=== PATIENT | female | born 1990 | race Two or more races ===

== ENCOUNTER 2019-04-23 14:58 | Emergency (ER) | payer OTHER ==
[~2019-04-23] VITALS: Ht 157.5 cm; Wt 68.0 kg
[~2019-04-23 14:58] MED LIST: CLO3P TD; CYCL100C8 PO; ERGO1CAP23 PO; FAMO-12 PO; FERR-7 PO; ISRA2.5C PO; LEV250T PO; OMEP20CA74 PO; PRE5T PO; PROPRANOLOL PO; SODB650T PO; [UNRECOGNIZED DRUG - CODE] PO
[2019-04-23] MEDS ORDERED: SODIUM CHLORIDE 0.9% 1,000 ML IVB ONE (15:24)
[2019-04-23] MEDS ORDERED: FAMOTIDINE (10MG/ML) 2ML VL IV ONE (15:30)
[2019-04-23] MEDS ORDERED: MORPHINE SULFATE 4 MG/ML SYR/VIAL IV ONE (15:30)
[2019-04-23] MEDS ORDERED: PROCHLORPERAZINE EDISYLATE 5 MG/ML 2ML VIAL IV ONE (15:30)
[2019-04-23 16:02] LABS: Albumin 4.1 g/dL (3.4-5.0); Calcium 9.7 mg/dL (8.5-10.1); Potassium 4.9 mmol/L (3.5-5.1)
[2019-04-23 16:10] LABS: BUN/Creatinine Ratio 15.4; Bilirubin, Total 0.7 mg/dL (0.2-1.0); Total Protein 7.9 g/dL (6.4-8.2)
[2019-04-23 16:24] LABS: Basophils # (auto) 0.1 uL; Basophils % (auto) 0.7 % (0.0-2.0); Eosinophils # (auto) 0 uL; Eosinophils % (auto) 0.1 % (0.0-7.0); Hematocrit 32.9 % (36.0-46.0); Hemoglobin 11.2 g/dL (12.2-16.2); Lymphocytes % (auto) 12.9 % (10.0-50.0); Mean Corpuscular Hemoglobin 33.8 pg (28.0-32.0); Mean Corpuscular Volume 99.3 fL (80.0-100.0); Monocytes # (auto) 0.3 uL; Monocytes % (auto) 3.4 % (0.0-12.0); Neutrophils # (auto) 6.3 uL; Neutrophils % (auto) 82.9 % (37.0-80.0); Platelet Count (auto) 287 10^3/uL (140-450); Red Blood Cells 3.32 10^6/uL (4.0-5.20); Red Cell Distribution Width 13.7 % (11.8-14.3); White Blood Cell 7.5 10^3/uL (4.4-10.8)
[2019-04-23 16:46] LABS: Urine Bacteria FEW /hpf (None Seen); Urine Blood TRACE /uL (Negative); Urine Specific Gravity 1.013 (1.001-1.035); Urine WBC 18 /hpf (0 - 5)
[2019-04-23 17:01] VITALS: BP 134/80
== END 2019-04-23 18:03 | disposition home or self-care (01) ==
LOC: ER 15:00
DX: N39.0 Urinary tract infection, site not specified (principal); R11.2 Nausea with vomiting, unspecified; K21.9 Gastro-esophageal reflux disease without esophagitis; E78.5 Hyperlipidemia, unspecified; I12.9 Hypertensive chronic kidney disease with stage 1 through stage 4 chronic kidney disease, or unspecified chronic kidney disease; N18.9 Chronic kidney disease, unspecified; Z79.899 Other long term (current) drug therapy
CPT/HCPCS: 36415; 76705; 80053; 81001; 81025; 82150; 83690; 85025; 94761; 96361; 96374; 96375; 99283; J0780; J2270; J3490; J7030

== ENCOUNTER 2019-05-15 08:45 | Emergency (ER) | payer OTHER ==
[~2019-05-15] VITALS: Ht 162.6 cm; Wt 70.3 kg
[2019-05-15] MEDS ORDERED: SODIUM CHLORIDE 0.9% 1,000 ML IV ONE (09:05)
[2019-05-15] MEDS ORDERED: SODIUM CHLORIDE 0.9% 500 ML IVB ONE (09:05)
[2019-05-15] MEDS ORDERED: PROMETHAZINE HCL 25 MG/ML 1ML IV PRN (09:15)
[2019-05-15] MEDS ORDERED: CYCL1CAP PO ×2 (09:55→10:11)
[2019-05-15 10:40] LABS: Magnesium 2.3 mg/dL (1.6-2.6)
[2019-05-15 10:45] LABS: Albumin 4.5 g/dL (3.4-5.0); BUN/Creatinine Ratio 16.8; Calcium 9.7 mg/dL (8.5-10.1); Potassium 4.8 mmol/L (3.5-5.1)
[2019-05-15 10:47] LABS: Bilirubin, Total 0.9 mg/dL (0.2-1.0); Total Protein 8.1 g/dL (6.4-8.2)
[2019-05-15 11:31] LABS: Basophils # (auto) 0 uL; Eosinophils # (auto) 0 uL; Eosinophils % (auto) 0.1 % (0.0-7.0); Hemoglobin 10.6 g/dL (12.2-16.2); Monocytes # (auto) 0.3 uL; Red Cell Distribution Width 14.4 % (11.8-14.3)
[2019-05-15 11:32] LABS: Basophils % (auto) 0.6 % (0.0-2.0); Hematocrit 31.5 % (36.0-46.0); Lymphocytes # (auto) 0.8 uL; Lymphocytes % (auto) 19.7 % (10.0-50.0); Mean Corpuscular Hgb Conc. 33.7 g/dL (32.0-36.0); Mean Corpuscular Volume 100.9 fL (80.0-100.0); Monocytes % (auto) 6.5 % (0.0-12.0); Neutrophils # (auto) 2.9 uL; Neutrophils % (auto) 73.1 % (37.0-80.0); Platelet Count (auto) 272 10^3/uL (140-450); Red Blood Cells 3.12 10^6/uL (4.0-5.20)
[2019-05-15 13:19] LABS: Urine Bacteria FEW /hpf (None Seen); Urine Blood TRACE /uL (Negative); Urine Specific Gravity 1.011 (1.001-1.035); Urine WBC 14 /hpf (0 - 5)
[2019-05-15] MEDS ORDERED: cefTRIAXone 1GM/50ML D5W 50 ML IV ONE (16:30)
[2019-05-15 17:49] VITALS: BP 166/111
[2019-05-15] MEDS ORDERED: SODIUM CHLORIDE 0.9% 2,000 ML IV ONE (18:00)
[2019-05-15] MEDS ORDERED: cloNIDine HCL 0.1 MG TAB PO ONE (18:00)
[2019-05-15] MEDS ORDERED: cloNIDine HCL 0.1 MG TAB PO PRN (18:00)
[2019-05-15] MEDS ORDERED: METO-281 PO (18:07)
[2019-05-15] MEDS ORDERED: hydrALAZINE HCL 20 MG/ML VL IV PRN (18:15)
[2019-05-15] MEDS ORDERED: METOCLOPRAMIDE HCL 5MG/ml INJ 2ml VIAL IV PRN (18:15)
[2019-05-15 18:33] LABS: BUN/Creatinine Ratio 15.8; Calcium 8.6 mg/dL (8.5-10.1); Potassium 4.6 mmol/L (3.5-5.1)
[2019-05-15] MEDS ORDERED: PATIENTS OWN MEDICATION PO SCH (19:30)
[2019-05-15] MEDS ORDERED: CYCLOSPORINE 100 MG PO SCH (19:30)
[2019-05-15] MEDS ORDERED: SODIUM BICARBONATE 650 MG TAB PO SCH (22:00)
[2019-05-15] MEDS ORDERED: PROPRANOLOL HCL 20 MG TAB PO SCH (22:00)
[2019-05-15] MEDS ORDERED: ISRADIPINE 2.5 MG PO SCH (22:00)
[2019-05-16] MEDS ORDERED: CYCLOSPORINE MODIFIED PO SCH (07:00)
[2019-05-16] MEDS ORDERED: predniSONE 5 MG TAB PO SCH (10:00)
[2019-05-16] MEDS ORDERED: cloNIDine 0.3 mg/24hr 7DAY PATCH TD SCH (10:00)
[2019-05-16] MEDS ORDERED: PANTOPRAZOLE 40 MG TAB PO SCH (10:00)
[2019-05-16] MEDS ORDERED: azaTHIOprine 50 MG TAB PO SCH (10:00)
[2019-05-16] MEDS ORDERED: FAMOTIDINE 20 MG TAB PO SCH (10:00)
[2019-05-16] MEDS ORDERED: FERROUS SULFATE 325 MG TAB PO SCH (10:00)
[2019-05-17] MEDS ORDERED: ERGOCALCIFEROL 50,000 UNIT(1.25MG) CAP PO SCH (10:00)
== END 2019-05-15 20:40 | disposition home or self-care (01) ==
LOC: ER 08:48
DX: E86.0 Dehydration (principal); I12.9 Hypertensive chronic kidney disease with stage 1 through stage 4 chronic kidney disease, or unspecified chronic kidney disease; N18.4 Chronic kidney disease, stage 4 (severe); K21.9 Gastro-esophageal reflux disease without esophagitis; E78.5 Hyperlipidemia, unspecified; N39.0 Urinary tract infection, site not specified; Z94.0 Kidney transplant status; Z79.899 Other long term (current) drug therapy
CPT/HCPCS: 36415; 71046; 74176; 76775; 80048; 80053; 81001; 81025; 83690; 83735; 84443; 84702; 85025; 93005; 94761; 96361; 96365; 96375; 99284; J0696; J2550; J7030; J7040

== ENCOUNTER 2020-10-12 12:41 | Emergency (ER) | payer OTHER ==
[~2020-10-12] VITALS: Ht 160 cm; Wt 83.9 kg
[~2020-10-12 12:41] MED LIST changes: -CYCL100C8 PO; +CYCL1CAP PO; +METO-281 PO
[2020-10-12 14:54] VITALS: BP 138/92
[2020-10-12] MEDS ORDERED: diphenhdrAMINE HCL 25 MG CAP PO ONE (15:45)
== END 2020-10-12 15:39 | disposition home or self-care (01) ==
LOC: ER 12:41
DX: L23.89 Allergic contact dermatitis due to other agents (principal); T37.8X5A Adverse effect of other specified systemic anti-infectives and antiparasitics, initial encounter; Y92.9 Unspecified place or not applicable

== ENCOUNTER 2020-11-11 20:38 | Emergency (ER) | payer OTHER ==
[~2020-11-11] VITALS: Ht 162.6 cm; Wt 63.5 kg
[2020-11-11 21:20] LABS: Basophils # (auto) 0 10 ^3/uL (0-0.2); Basophils % (auto) 0.3 % (0.0-2.0); Eosinophils # (auto) 0 10 ^3/uL (0-0.8); Mean Corpuscular Volume 97.8 fL (80.0-100.0); Monocytes # (auto) 0.3 10 ^3/uL (0-1.3)
[2020-11-11 21:21] LABS: Eosinophils % (auto) 0.5 % (0.0-7.0); Hematocrit 17.8 % (36.0-46.0); Lymphocytes % (auto) 21.6 % (10.0-50.0); Mean Corpuscular Hemoglobin 32.7 pg (28.0-32.0); Mean Corpuscular Hgb Conc. 33.4 g/dL (32.0-36.0); Monocytes % (auto) 5.6 % (0.0-12.0); Neutrophils # (auto) 3.4 10 ^3/uL (1.6-8.6); Nucleated Red Blood Cells % 0.1 %; Platelet Count (auto) 166 10^3/uL (140-450); Red Blood Cells 1.82 10^6/uL (4.0-5.20); Red Cell Distribution Width 14.5 % (11.8-14.3); White Blood Cell 4.7 10^3/uL (4.4-10.8)
[2020-11-11 21:50] LABS: Albumin 3.9 g/dL (3.4-5.0); Potassium 4.6 mmol/L (3.5-5.1)
[2020-11-11 21:53] LABS: BUN/Creatinine Ratio 8.1; Bilirubin, Total 0.4 mg/dL (0.2-1.0); Total Protein 7.9 g/dL (6.4-8.2)
[2020-11-12] VITALS (7 sets, daily range): BP systolic 145–161; BP diastolic 91–110
[2020-11-12 10:57] LABS: Hematocrit 26.9 % (36.0-46.0); Hemoglobin 9.1 g/dL (12.2-16.2)
== END 2020-11-12 11:20 | disposition home or self-care (01) ==
LOC: ER 20:39
DX: D64.9 Anemia, unspecified (principal); R04.0 Epistaxis; K21.9 Gastro-esophageal reflux disease without esophagitis; I12.9 Hypertensive chronic kidney disease with stage 1 through stage 4 chronic kidney disease, or unspecified chronic kidney disease; N18.9 Chronic kidney disease, unspecified; E78.5 Hyperlipidemia, unspecified; Z79.899 Other long term (current) drug therapy; Z94.0 Kidney transplant status
CPT/HCPCS: 36415; 36430; 80053; 85014; 85018; 85025; 86850; 86900; 86901; 86920; 99285; P9016

== ENCOUNTER 2020-11-30 12:59 | Emergency (ER) | payer OTHER ==
[~2020-11-30] VITALS: Ht 157.5 cm; Wt 54.4 kg
[2020-11-30] MEDS ORDERED: LABETALOL HCL 5 MG/ML 4ML SYRINGE IV ONE (13:15)
[2020-11-30 13:53] LABS: Basophils # (auto) 0 10 ^3/uL (0-0.2); Basophils % (auto) 0.4 % (0.0-2.0); Eosinophils # (auto) 0.1 10 ^3/uL (0-0.8); Mean Corpuscular Hemoglobin 32.7 pg (28.0-32.0); Mean Corpuscular Hgb Conc. 34.5 g/dL (32.0-36.0); Monocytes # (auto) 0.5 10 ^3/uL (0-1.3); Neutrophils # (auto) 4.3 10 ^3/uL (1.6-8.6); White Blood Cell 6.5 10^3/uL (4.4-10.8)
[2020-11-30 13:55] LABS: Eosinophils % (auto) 1.7 % (0.0-7.0); Hematocrit 14.3 % (36.0-46.0); Lymphocytes # (auto) 1.6 10 ^3/uL (0.4-5.4); Mean Corpuscular Volume 94.7 fL (80.0-100.0); Monocytes % (auto) 8.1 % (0.0-12.0); Neutrophils % (auto) 65.8 % (37.0-80.0); Nucleated Red Blood Cells % 0.2 %; Platelet Count (auto) 218 10^3/uL (140-450); Red Blood Cells 1.51 10^6/uL (4.0-5.20); Red Cell Distribution Width 16.3 % (11.8-14.3)
[2020-11-30 14:12] LABS: Albumin 3.7 g/dL (3.4-5.0); Anion Gap 5 (5-15); Blood Urea Nitrogen 21 mg/dL (7-18); Calcium 7.3 mg/dL (8.5-10.1); Carbon Dioxide 25 mmol/L (21-32); Chloride 108 mmol/L (98-107); Glucose 94 mg/dL (74-106); Potassium 3.5 mmol/L (3.5-5.1); Sodium 138 mmol/L (136-145)
[2020-11-30 14:16] LABS: INR 0.95 (0.9-1.15); Partial Thromboplastin Time 20.2 sec (23.0-31.2)
[2020-11-30 14:17] LABS: Alanine Aminotransferase 52 U/L (13-56); Alkaline Phosphatase 96 U/L (45-117); Aspartate Aminotransferase 29 U/L (15-37); BUN/Creatinine Ratio 5.3; Bilirubin, Total 0.6 mg/dL (0.2-1.0); GFR African American 17 mL/min; GFR Non-African American 14 mL/min; Total Protein 7.5 g/dL (6.4-8.2)
[2020-11-30] MEDS ORDERED: hydrALAZINE HCL 20 MG/ML VL ONE (15:54)
[2020-11-30 15:59] VITALS: BP 177/106
[2020-11-30] MEDS ORDERED: hydrALAZINE HCL 20 MG/ML VL IV ONE (16:00)
[2020-11-30 16:20] VITALS: BP 156/100
[2020-11-30] MEDS ORDERED: ACETAMINOPHEN 500 MG TAB PO ONE (16:45)
[2020-11-30 17:48] VITALS: BP 160/98
[2020-11-30] MEDS ORDERED: cloNIDine HCL 0.1 MG TAB ONE (18:49)
[2020-11-30 18:50] VITALS: BP 180/108
[2020-11-30] MEDS ORDERED: cloNIDine HCL 0.1 MG TAB PO ONE (19:00)
[2020-11-30 19:10] VITALS: BP 170/108
[2020-11-30 21:30] VITALS: BP 126/91
[2020-12-01 00:59] VITALS: BP 196/121
[2020-12-01 01:14] VITALS: BP 198/115
[2020-12-01] MEDS ORDERED: LABETALOL HCL 5 MG/ML 4ML SYRINGE IV ONE (01:30)
[2020-12-01 04:37] VITALS: BP 199/119
[2020-12-01 04:40] LABS: Hematocrit 25.6 % (36.0-46.0); Hemoglobin 9.1 g/dL (12.2-16.2)
[2020-12-01] MEDS ORDERED: ACETAMINOPHEN 325 MG TAB PO ONE (05:00)
[2020-12-01] MEDS ORDERED: cloNIDine HCL 0.1 MG TAB PO ONE (06:00)
[2020-12-01] MEDS ORDERED: NITROGLYCERIN 0.4 MG SL TAB SL PRN (07:00)
[2020-12-01] MEDS ORDERED: MORPHINE SULF INJ 2 MG/ML SYRINGE 1ML IV PRN (07:00)
[2020-12-01] MEDS ORDERED: amLODIPine BESYLATE 5 MG TAB PO ONE (07:30)
[2020-12-01] MEDS ORDERED: CARVEDILOL 3.125 MG TAB PO ONE (08:00)
[2020-12-01 08:22] LABS: Potassium 4.4 mmol/L (3.5-5.1)
[2020-12-01 08:37] LABS: Basophils # (auto) 0 10 ^3/uL (0-0.2); Basophils % (auto) 0.5 % (0.0-2.0); Eosinophils # (auto) 0.1 10 ^3/uL (0-0.8); Eosinophils % (auto) 1.9 % (0.0-7.0); Hematocrit 26.5 % (36.0-46.0); Lymphocytes # (auto) 2.3 10 ^3/uL (0.4-5.4); Mean Corpuscular Hemoglobin 31.1 pg (28.0-32.0); Mean Corpuscular Volume 91.4 fL (80.0-100.0); Monocytes # (auto) 0.5 10 ^3/uL (0-1.3); Monocytes % (auto) 9.2 % (0.0-12.0); Neutrophils # (auto) 2.8 10 ^3/uL (1.6-8.6); Neutrophils % (auto) 48.4 % (37.0-80.0); Nucleated Red Blood Cells % 0.2 %; Platelet Count (auto) 190 10^3/uL (140-450); Red Cell Distribution Width 15.4 % (11.8-14.3); White Blood Cell 5.8 10^3/uL (4.4-10.8)
[2020-12-01 08:41] LABS: Albumin 3.1 g/dL (3.4-5.0); BUN/Creatinine Ratio 5.6; Bilirubin, Total 0.8 mg/dL (0.2-1.0); Calcium 7.6 mg/dL (8.5-10.1); Total Protein 6.7 g/dL (6.4-8.2)
[2020-12-01 08:57] VITALS: BP 169/96
[2020-12-01] MEDS ORDERED: ISRADIPINE PO SCH (10:00)
[2020-12-01] MEDS ORDERED: ISRADIPINE 2.5 MG PO SCH (10:00)
[2020-12-01] MEDS ORDERED: azaTHIOprine 50 MG TAB PO SCH ×2 (10:00)
[2020-12-01] MEDS ORDERED: CYCLOSPORINE MODIFIED PO SCH ×2 (18:00)
[2020-12-02] MEDS ORDERED: CYCLOSPORINE MODIFIED PO SCH ×2 (07:00)
== END 2020-12-01 07:48 | disposition home or self-care (01) ==
LOC: ER 12:59 → EDBD 12:59 → UNDOADMOB 12-01 06:46 → OVERFLOW 12-01 06:46 → UNDODISOB 12-01 09:25
DX: I16.0 Hypertensive urgency (principal); I12.0 Hypertensive chronic kidney disease with stage 5 chronic kidney disease or end stage renal disease; N18.6 End stage renal disease; D63.1 Anemia in chronic kidney disease; Z99.2 Dependence on renal dialysis; F41.9 Anxiety disorder, unspecified; H91.90 Unspecified hearing loss, unspecified ear; D84.9 Immunodeficiency, unspecified; Z94.0 Kidney transplant status; Z20.822 Contact with and (suspected) exposure to COVID-19
CPT/HCPCS: 36415; 36430; 71045; 80053; 84484; 85014; 85018; 85025; 85610; 85730; 86850; 86900; 86901; 86920; 87426; 96374; 96375; 99285; J0360; J3490; P9016; U0003; G0378

== ENCOUNTER 2020-12-23 13:38 | Emergency (ER) | payer OTHER ==
[~2020-12-23] VITALS: Ht 157.5 cm; Wt 64.4 kg
[~2020-12-23 13:38] MED LIST changes: -PROPRANOLOL PO
[2020-12-23 15:16] LABS: Basophils # (auto) 0 10 ^3/uL (0-0.2); Eosinophils # (auto) 0 10 ^3/uL (0-0.8); Hemoglobin 8.3 g/dL (12.2-16.2); Mean Corpuscular Hgb Conc. 35.3 g/dL (32.0-36.0); Monocytes # (auto) 0.2 10 ^3/uL (0-1.3); Neutrophils # (auto) 7.5 10 ^3/uL (1.6-8.6); Platelet Count (auto) 281 10^3/uL (140-450)
[2020-12-23 15:18] LABS: Basophils % (auto) 0.1 % (0.0-2.0); Eosinophils % (auto) 0.6 % (0.0-7.0); Hematocrit 23.6 % (36.0-46.0); Lymphocytes # (auto) 0.2 10 ^3/uL (0.4-5.4); Lymphocytes % (auto) 2.9 % (10.0-50.0); Mean Corpuscular Hemoglobin 34.3 pg (28.0-32.0); Mean Corpuscular Volume 97.3 fL (80.0-100.0); Monocytes % (auto) 2.5 % (0.0-12.0); Neutrophils % (auto) 93.9 % (37.0-80.0); Nucleated Red Blood Cells % 0.1 %; Red Blood Cells 2.43 10^6/uL (4.0-5.20)
[2020-12-23 15:23] LABS: Red Cell Distribution Width 23.6 % (11.8-14.3)
[2020-12-23 15:43] LABS: Albumin 3.8 g/dL (3.4-5.0); BUN/Creatinine Ratio 6.5; Bilirubin, Total 0.5 mg/dL (0.2-1.0); Calcium 7.4 mg/dL (8.5-10.1); Potassium 4.7 mmol/L (3.5-5.1); Total Protein 7.9 g/dL (6.4-8.2)
[2020-12-23 21:05] VITALS: BP 130/89
== END 2020-12-23 21:12 | disposition home or self-care (01) ==
LOC: ER 13:38
DX: D64.9 Anemia, unspecified (principal); N18.6 End stage renal disease; E78.5 Hyperlipidemia, unspecified; Z79.899 Other long term (current) drug therapy
CPT/HCPCS: 36415; 80053; 85025

== ENCOUNTER 2021-04-30 08:57 | Emergency (ER) | payer OTHER ==
[~2021-04-30] VITALS: Ht 154.9 cm; Wt 61.2 kg
[2021-04-30] MEDS ORDERED: IBUPROFEN 600 MG TAB PO ONE (09:15)
[2021-04-30 09:34] LABS: Basophils # (auto) 0 10 ^3/uL (0-0.2); Eosinophils # (auto) 0 10 ^3/uL (0-0.8); Hematocrit 22.3 % (36.0-46.0); Hemoglobin 7.7 g/dL (12.2-16.2); Lymphocytes # (auto) 0.8 10 ^3/uL (0.4-5.4); Monocytes # (auto) 0.5 10 ^3/uL (0-1.3); White Blood Cell 14.4 10^3/uL (4.4-10.8)
[2021-04-30 09:36] LABS: Basophils % (auto) 0.3 % (0.0-2.0); Eosinophils % (auto) 0.2 % (0.0-7.0); Lymphocytes % (auto) 5.6 % (10.0-50.0); Mean Corpuscular Hemoglobin 34.4 pg (28.0-32.0); Mean Corpuscular Hgb Conc. 34.4 g/dL (32.0-36.0); Mean Corpuscular Volume 100.2 fL (80.0-100.0); Monocytes % (auto) 3.6 % (0.0-12.0); Neutrophils % (auto) 90.3 % (37.0-80.0); Platelet Count (auto) 232 10^3/uL (140-450); Red Blood Cells 2.23 10^6/uL (4.0-5.20); Red Cell Distribution Width 12.6 % (11.8-14.3)
[2021-04-30 09:39] LABS: Albumin 3.6 g/dL (3.4-5.0); Calcium 7.4 mg/dL (8.5-10.1); Potassium 4.7 mmol/L (3.5-5.1)
[2021-04-30 09:42] LABS: Bilirubin, Total 0.8 mg/dL (0.2-1.0); Total Protein 7.3 g/dL (6.4-8.2)
[2021-04-30] MEDS ORDERED: VANCOMYCIN 1GM/250ML 250 ML IV ONE (09:45)
[2021-04-30] MEDS ORDERED: PIPERACILLIN-TAZOB 3.375GM 100 ML IV ONE (09:45)
[2021-04-30] MEDS ORDERED: SODIUM CHLORIDE 0.9% 500 ML IV ONE (09:45)
[2021-04-30 10:16] LABS: Urine Bacteria FEW /hpf (None Seen); Urine Blood 1+ /uL (Negative); Urine Specific Gravity 1.009 (1.001-1.035); Urine WBC 28 /hpf (0 - 5)
[2021-04-30 11:27] VITALS: BP 104/64
[2021-05-01] MEDS ORDERED: PROP20TA73 PO (17:03)
[2021-05-01] MEDS ORDERED: LOSA-69 PO (17:03)
[2021-05-01] MEDS ORDERED: CARV6.2551 PO (17:03)
[2021-05-01] MEDS ORDERED: CHOL20007 PO (17:03)
[2021-05-01] MEDS ORDERED: ATOR10TA PO (17:03)
[2021-05-01] MEDS ORDERED: PRE5T PO (17:03)
[2021-05-01] MEDS ORDERED: CLON0.2T PO (17:03)
[2021-05-01] MEDS ORDERED: MIN25T PO (17:03)
[2021-05-01] MEDS ORDERED: CLON0.2D TD (17:03)
== END 2021-04-30 12:39 | disposition home or self-care (01) ==
LOC: ER 08:57
DX: A41.9 Sepsis, unspecified organism (principal); L03.313 Cellulitis of chest wall; I10 Essential (primary) hypertension; Z99.2 Dependence on renal dialysis; Z94.0 Kidney transplant status; Z79.899 Other long term (current) drug therapy; Z20.822 Contact with and (suspected) exposure to COVID-19
CPT/HCPCS: 36415; 36600; 71045; 80053; 81001; 82805; 83605; 84702; 85025; 87040; 87426; 96365; 96366; 96368; 99284; J2543; J3370; 87077; 87186

== ENCOUNTER 2021-04-30 19:16 | Inpatient (IN) | payer OTHER ==
[~2021-04-30] VITALS: Ht 154.9 cm; Wt 67.0 kg
[2021-04-30] MEDS ORDERED: ACETAMINOPHEN 325 MG TAB PO ONE (19:30)
[2021-04-30 19:51] LABS: Basophils # (auto) 0 10 ^3/uL (0-0.2); Basophils % (auto) 0.2 % (0.0-2.0); Eosinophils # (auto) 0 10 ^3/uL (0-0.8); Hemoglobin 7.3 g/dL (12.2-16.2); Lymphocytes # (auto) 0.3 10 ^3/uL (0.4-5.4); Monocytes # (auto) 0.3 10 ^3/uL (0-1.3); Red Cell Distribution Width 12.8 % (11.8-14.3)
[2021-04-30 19:53] LABS: Eosinophils % (auto) 0.2 % (0.0-7.0); Lymphocytes % (auto) 2.5 % (10.0-50.0); Mean Corpuscular Hemoglobin 34.6 pg (28.0-32.0); Mean Corpuscular Hgb Conc. 34.8 g/dL (32.0-36.0); Mean Corpuscular Volume 99.4 fL (80.0-100.0); Monocytes % (auto) 2.7 % (0.0-12.0); Neutrophils # (auto) 10.8 10 ^3/uL (1.6-8.6); Neutrophils % (auto) 94.4 % (37.0-80.0); Red Blood Cells 2.11 10^6/uL (4.0-5.20); White Blood Cell 11.5 10^3/uL (4.4-10.8)
[2021-04-30 20:16] LABS: INR 1.17 (0.9-1.15); Partial Thromboplastin Time 30.2 sec (23.0-31.2)
[2021-04-30 20:38] LABS: Albumin 3.4 g/dL (3.4-5.0); Calcium 7.3 mg/dL (8.5-10.1); Magnesium 1.6 mg/dL (1.6-2.6)
[2021-04-30 20:41] LABS: BUN/Creatinine Ratio 3.9
[2021-04-30 20:46] LABS: Bilirubin, Total 1.3 mg/dL (0.2-1.0); Total Protein 7.1 g/dL (6.4-8.2)
[2021-04-30] MEDS ORDERED: SODIUM CHLORIDE 0.9% 1,000 ML IV ONE (21:15)
[2021-04-30 21:43] LABS: Urine Bacteria FEW /hpf (None Seen); Urine Blood 2+ /uL (Negative); Urine Specific Gravity 1.015 (1.001-1.035); Urine WBC 129 /hpf (0 - 5)
[2021-04-30] MEDS ORDERED: levoFLOXacin 500MG 100 ML IV ONE (22:00)
[2021-05-01] MEDS ORDERED: PIPERACILLIN-TAZOB 2.25GM 50 ML IV SCH
[2021-05-01] MEDS: SODIUM CHLORIDE 0.9% 500 ML IV SCH ×4 (00:09→19:30)
[2021-05-01] MEDS ORDERED: ONDANSETRON HCL 4 MG/2 ML VIAL IV PRN (01:00)
[2021-05-01] MEDS: ONDANSETRON HCL 4 MG/2 ML VIAL IV PRN ×3 (01:12→16:03)
[2021-05-01] MEDS: ACETAMINOPHEN 325 MG TAB PO PRN ×3 (02:02→16:30)
[2021-05-01] MEDS ORDERED: LABETALOL HCL 5 MG/ML 4ML SYRINGE IV ONE (02:15)
[2021-05-01 03:30] VITALS: BP 114/79
[2021-05-01] MEDS ORDERED: VANCOMYCIN PER PHARMACY 0 MG IV SCH (04:15)
[2021-05-01 04:36] VITALS: BP 114/79
[2021-05-01] MEDS ORDERED: VANCOMYCIN 1GM/250ML 250 ML IV ONE (07:15)
[2021-05-01 09:00] VITALS: BP 140/90
[2021-05-01] MEDS: PIPERACILLIN-TAZOB 2.25GM 50 ML IV SCH ×2 (09:13→21:54)
[2021-05-01 12:26] LABS: Potassium 4.3 mmol/L (3.5-5.1)
[2021-05-01 12:32] LABS: Albumin 2.7 g/dL (3.4-5.0); BUN/Creatinine Ratio 4.2; Bilirubin, Total 1.2 mg/dL (0.2-1.0); Calcium 7.1 mg/dL (8.5-10.1); Total Protein 6.4 g/dL (6.4-8.2)
[2021-05-01 13:00] VITALS: BP 148/95
[2021-05-01 17:00] VITALS: BP 147/89
[2021-05-01] MEDS ORDERED: PIPERACILLIN-TAZOB 0.75 GM in D5W 5% 50 ML IV PRN (17:00)
[2021-05-01] MEDS ORDERED: ATOR10TA PO (17:03)
[2021-05-01] MEDS ORDERED: CLON0.2T PO (17:03)
[2021-05-01] MEDS ORDERED: PRE5T PO (17:03)
[2021-05-01] MEDS ORDERED: MIN25T PO (17:03)
[2021-05-01] MEDS ORDERED: LOSA-69 PO (17:03)
[2021-05-01] MEDS ORDERED: CHOL20007 PO (17:03)
[2021-05-01] MEDS ORDERED: CARV6.2551 PO (17:03)
[2021-05-01] MEDS ORDERED: PROP20TA73 PO (17:03)
[2021-05-01] MEDS ORDERED: CLON0.2D TD (17:03)
[2021-05-01] MEDS: SEVELAMER 800 MG TAB PO SCH (17:54)
[2021-05-01] MEDS: PROMETHAZINE HCL 25 MG/ML 1ML IV PRN ×2 (19:19→23:18)
[2021-05-01 22:00] VITALS: BP 155/101
[2021-05-02] MEDS: SODIUM CHLORIDE 0.9% 500 ML IV SCH ×4 (02:46→22:10)
[2021-05-02] MEDS: PROMETHAZINE HCL 25 MG/ML 1ML IV PRN ×4 (04:24→18:23)
[2021-05-02 05:00] VITALS: BP 161/108
[2021-05-02 06:00] LABS: Basophils # (auto) 0 10 ^3/uL (0-0.2); Basophils % (auto) 0.2 % (0.0-2.0); Eosinophils # (auto) 0 10 ^3/uL (0-0.8); Mean Corpuscular Hgb Conc. 36.2 g/dL (32.0-36.0); Monocytes # (auto) 0.3 10 ^3/uL (0-1.3); Neutrophils # (auto) 7.5 10 ^3/uL (1.6-8.6); Nucleated Red Blood Cells % 0.1 %
[2021-05-02 06:03] LABS: Eosinophils % (auto) 0.3 % (0.0-7.0); Hematocrit 16.7 % (36.0-46.0); Lymphocytes # (auto) 0.4 10 ^3/uL (0.4-5.4); Lymphocytes % (auto) 5.1 % (10.0-50.0); Mean Corpuscular Hemoglobin 36.1 pg (28.0-32.0); Mean Corpuscular Volume 99.6 fL (80.0-100.0); Monocytes % (auto) 3.5 % (0.0-12.0); Neutrophils % (auto) 90.9 % (37.0-80.0); Red Blood Cells 1.68 10^6/uL (4.0-5.20); White Blood Cell 8.2 10^3/uL (4.4-10.8)
[2021-05-02 06:07] LABS: Hemoglobin 6.1 g/dL (12.2-16.2)
[2021-05-02 06:10] LABS: Potassium 4.2 mmol/L (3.5-5.1)
[2021-05-02 06:19] LABS: Calcium 7.5 mg/dL (8.5-10.1); Phosphorus 6.9 mg/dL (2.5-4.90)
[2021-05-02] MEDS: SEVELAMER 800 MG TAB PO SCH ×3 (07:58→18:23)
[2021-05-02 09:00] VITALS: BP 165/113
[2021-05-02] MEDS ORDERED: EPOETIN ALFA-EPBX 10,000 UNIT/1ML VIAL SC ONE (09:00)
[2021-05-02] MEDS ORDERED: ONDANSETRON HCL 4 MG/2 ML VIAL IV PRN (09:30)
[2021-05-02] MEDS ORDERED: azaTHIOprine 50 MG TAB PO SCH (10:00)
[2021-05-02] MEDS: PIPERACILLIN-TAZOB 2.25GM 50 ML IV SCH ×2 (11:46→21:44)
[2021-05-02] MEDS ORDERED: SODIUM FERR GLUC 62.5MG/5ML 125 MG in SODIUM CHL 0.9% 100 ML IV SCH (12:00)
[2021-05-02 13:01] VITALS: BP 176/120
[2021-05-02] MEDS: predniSONE 5 MG TAB PO SCH (13:02)
[2021-05-02 17:00] VITALS: BP 157/101
[2021-05-02] MEDS ORDERED: hydrALAZINE HCL 20 MG/ML VL IV PRN (22:30)
[2021-05-02] MEDS ORDERED: hydrALAZINE HCL 20 MG/ML VL IV ONE (22:30)
[2021-05-02 23:24] VITALS: BP 169/121
[2021-05-03] VITALS (44 sets, daily range): BP systolic 118–223; BP diastolic 43–119
[2021-05-03] MEDS ORDERED: LABETALOL HCL 5 MG/ML 4ML SYRINGE IV ONE
[2021-05-03] MEDS: METOCLOPRAMIDE HCL 5MG/ml INJ 2ml VIAL IV PRN ×2 (00:13→23:12)
[2021-05-03] MEDS ORDERED: FUROSEMIDE 40 MG/4 ML VIAL IV ONE ×2 (02:00→03:15)
[2021-05-03] MEDS ORDERED: LORazepam 2MG/ML-1ML VIAL ONE (02:01)
[2021-05-03] MEDS ORDERED: FUROSEMIDE 40 MG/4 ML VIAL ONE (02:01)
[2021-05-03] MEDS ORDERED: ALBUMIN 5% 250 ML IV ONE ×2 (02:12→02:15)
[2021-05-03] MEDS ORDERED: SODIUM BICARBONATE 8.4% INJ 50ML SYRINGE ONE (02:13)
[2021-05-03] MEDS ORDERED: LORazepam 2MG/ML-1ML VIAL IV ONE (02:15)
[2021-05-03] MEDS ORDERED: SODIUM BICARBONATE 8.4 % INJ 50ML VIAL IV ONE ×2 (02:15→03:15)
[2021-05-03] MEDS ORDERED: SODIUM CHLORIDE 0.9% 500 ML IV ONE (02:15)
[2021-05-03] MEDS ORDERED: dilTIAZem 25 MG/5 ML VIAL IV ONE ×2 (02:43→03:00)
[2021-05-03 03:11] LABS: Basophils # (auto) 0 10 ^3/uL (0-0.2); Eosinophils # (auto) 0 10 ^3/uL (0-0.8); Eosinophils % (auto) 0.1 % (0.0-7.0); Hemoglobin 7.8 g/dL (12.2-16.2); Lymphocytes # (auto) 1.7 10 ^3/uL (0.4-5.4); Mean Corpuscular Hgb Conc. 32.9 g/dL (32.0-36.0); Nucleated Red Blood Cells % 0.1 %; Red Cell Distribution Width 13.4 % (11.8-14.3); White Blood Cell 13.4 10^3/uL (4.4-10.8)
[2021-05-03 03:12] LABS: Basophils % (auto) 0.4 % (0.0-2.0); Hematocrit 23.6 % (36.0-46.0); Mean Corpuscular Hemoglobin 33.9 pg (28.0-32.0); Monocytes # (auto) 0.6 10 ^3/uL (0-1.3); Monocytes % (auto) 4.8 % (0.0-12.0); Neutrophils % (auto) 81.7 % (37.0-80.0); Red Blood Cells 2.29 10^6/uL (4.0-5.20)
[2021-05-03 03:29] LABS: Albumin 2.8 g/dL (3.4-5.0); Calcium 7.6 mg/dL (8.5-10.1)
[2021-05-03 03:33] LABS: Bilirubin, Total 1.2 mg/dL (0.2-1.0); Total Protein 7.1 g/dL (6.4-8.2)
[2021-05-03] MEDS: SODIUM CHLORIDE 0.9% 500 ML IV SCH ×3 (04:50→18:10)
[2021-05-03] MEDS ORDERED: SODIUM ZIRCONIUM CYCL 10 GM PAK PO ONE (05:15)
[2021-05-03] MEDS ORDERED: SODIUM CHL 0.9% 1000 ML BAG XX ONE (07:00)
[2021-05-03] MEDS: SEVELAMER 800 MG TAB PO SCH ×3 (08:02→18:25)
[2021-05-03] MEDS: PROMETHAZINE HCL 25 MG/ML 1ML IV PRN ×2 (08:57→19:12)
[2021-05-03] MEDS ORDERED: METOPROLOL TARTRATE 1MG/1ML-5ML VIAL IV PRN (09:15)
[2021-05-03] MEDS: predniSONE 5 MG TAB PO SCH (10:00)
[2021-05-03] MEDS: CARVEDILOL 3.125 MG TAB PO SCH ×2 (10:00→21:37)
[2021-05-03] MEDS: PIPERACILLIN-TAZOB 2.25GM 50 ML IV SCH ×2 (10:00→21:37)
[2021-05-03] MEDS: hydrALAZINE HCL 20 MG/ML VL IV PRN ×2 (12:11→18:25)
[2021-05-03] MEDS ORDERED: LIDOCAINE 2%HCL (LOCAL ANESTH.) INJ 20ML MDV ONE (17:19)
[2021-05-03] MEDS ORDERED: EPOETIN ALFA-EPBX 10,000 UNIT/1ML VIAL SC ONE (21:00)
[2021-05-04] VITALS (51 sets, daily range): BP systolic 132–196; BP diastolic 75–115
[2021-05-04] MEDS: SODIUM CHLORIDE 0.9% 500 ML IV SCH ×2 (00:50→07:30)
[2021-05-04] MEDS: hydrALAZINE HCL 20 MG/ML VL IV PRN ×3 (03:24→18:29)
[2021-05-04] MEDS: PROMETHAZINE HCL 25 MG/ML 1ML IV PRN (04:55)
[2021-05-04 05:33] LABS: Basophils # (auto) 0 10 ^3/uL (0-0.2); Eosinophils # (auto) 0 10 ^3/uL (0-0.8); Eosinophils % (auto) 0.3 % (0.0-7.0); Lymphocytes # (auto) 1.1 10 ^3/uL (0.4-5.4); Monocytes # (auto) 0.7 10 ^3/uL (0-1.3)
[2021-05-04 05:36] LABS: Basophils % (auto) 0.1 % (0.0-2.0); Hematocrit 18.6 % (36.0-46.0); Lymphocytes % (auto) 12.5 % (10.0-50.0); Mean Corpuscular Hemoglobin 35.3 pg (28.0-32.0); Mean Corpuscular Hgb Conc. 35.7 g/dL (32.0-36.0); Monocytes % (auto) 8.7 % (0.0-12.0); Neutrophils # (auto) 6.6 10 ^3/uL (1.6-8.6); Neutrophils % (auto) 78.4 % (37.0-80.0); Red Blood Cells 1.88 10^6/uL (4.0-5.20); White Blood Cell 8.4 10^3/uL (4.4-10.8)
[2021-05-04 05:38] LABS: Hemoglobin 6.6 g/dL (12.2-16.2)
[2021-05-04 05:53] LABS: Calcium 7.3 mg/dL (8.5-10.1); Potassium 3.3 mmol/L (3.5-5.1)
[2021-05-04 05:57] LABS: BUN/Creatinine Ratio 4.8
[2021-05-04] MEDS: SEVELAMER 800 MG TAB PO SCH ×3 (09:31→18:00)
[2021-05-04] MEDS: predniSONE 5 MG TAB PO SCH (09:32)
[2021-05-04] MEDS: CARVEDILOL 3.125 MG TAB PO SCH ×2 (09:32→21:40)
[2021-05-04] MEDS: PIPERACILLIN-TAZOB 2.25GM 50 ML IV SCH ×2 (09:55→21:39)
[2021-05-04] MEDS: IPRATROPIUM BROMIDE HFA AER IN SCH ×2 (13:50→21:36)
[2021-05-04] MEDS: ALBUTEROL SULF HFA 90MCG INH 200DOSE IN SCH ×2 (13:51→21:36)
[2021-05-04] MEDS ORDERED: HYDROmorphone HCL 2 MG/ML VL IV ONE (21:00)
[2021-05-04] MEDS ORDERED: OXYCODONE W/ ACETAMINOPHEN 5/325MG TABLET PO PRN (21:00)
[2021-05-05] VITALS (39 sets, daily range): BP systolic 135–200; BP diastolic 77–125
[2021-05-05] MEDS: METOCLOPRAMIDE HCL 5MG/ml INJ 2ml VIAL IV PRN (02:43)
[2021-05-05 04:08] LABS: Eosinophils # (auto) 0.1 10 ^3/uL (0-0.8); Lymphocytes # (auto) 1.2 10 ^3/uL (0.4-5.4); Monocytes # (auto) 0.8 10 ^3/uL (0-1.3)
[2021-05-05 04:10] LABS: Basophils # (auto) 0 10 ^3/uL (0-0.2); Basophils % (auto) 0.3 % (0.0-2.0); Eosinophils % (auto) 1.1 % (0.0-7.0); Hematocrit 18.7 % (36.0-46.0); Lymphocytes % (auto) 11.5 % (10.0-50.0); Mean Corpuscular Hemoglobin 35.6 pg (28.0-32.0); Mean Corpuscular Hgb Conc. 36.3 g/dL (32.0-36.0); Monocytes % (auto) 7.7 % (0.0-12.0); Neutrophils # (auto) 8.2 10 ^3/uL (1.6-8.6); Neutrophils % (auto) 79.4 % (37.0-80.0); Nucleated Red Blood Cells % 0.3 %; Red Blood Cells 1.91 10^6/uL (4.0-5.20); Red Cell Distribution Width 13.3 % (11.8-14.3); White Blood Cell 10.4 10^3/uL (4.4-10.8)
[2021-05-05 04:16] LABS: Hemoglobin 6.8 g/dL (12.2-16.2)
[2021-05-05 04:22] LABS: Albumin 2.7 g/dL (3.4-5.0); Calcium 7.3 mg/dL (8.5-10.1); Potassium 3.2 mmol/L (3.5-5.1)
[2021-05-05 04:24] LABS: BUN/Creatinine Ratio 5.6
[2021-05-05 04:27] LABS: Total Protein 6.6 g/dL (6.4-8.2)
[2021-05-05] MEDS: IPRATROPIUM BROMIDE HFA AER IN SCH ×2 (06:11→22:32)
[2021-05-05] MEDS: ALBUTEROL SULF HFA 90MCG INH 200DOSE IN SCH ×2 (06:18→22:32)
[2021-05-05] MEDS: PROMETHAZINE HCL 25 MG/ML 1ML IV PRN (06:33)
[2021-05-05] MEDS ORDERED: LOSARTAN POTASSIUM 50 MG TAB ONE (09:21)
[2021-05-05] MEDS: SEVELAMER 800 MG TAB PO SCH ×3 (09:30→18:33)
[2021-05-05] MEDS: CARVEDILOL 3.125 MG TAB PO SCH ×2 (09:31→22:15)
[2021-05-05] MEDS: PANTOPRAZOLE 40 MG TAB PO SCH (09:31)
[2021-05-05] MEDS: predniSONE 5 MG TAB PO SCH (09:31)
[2021-05-05] MEDS ORDERED: PANTOPRAZOLE 40 MG/10 ML VIAL INJ IV SCH (10:00)
[2021-05-05] MEDS ORDERED: LOSARTAN POTASSIUM 50 MG TAB PO SCH (10:00)
[2021-05-05] MEDS: PIPERACILLIN-TAZOB 2.25GM 50 ML IV SCH ×2 (10:15→22:06)
[2021-05-05] MEDS ORDERED: POTASSIUM CHL 20 Meq TABLET PO ONE (10:45)
[2021-05-05] MEDS: PROPRANOLOL HCL 20 MG TAB PO SCH ×2 (14:43→22:16)
[2021-05-05] MEDS: Nepro With Carbsteady ButterPecan 8oz Carton PO SCH (18:33)
[2021-05-06] VITALS (82 sets, daily range): BP systolic 116–218; BP diastolic 71–113
[2021-05-06] MEDS: PROPRANOLOL HCL 20 MG TAB PO SCH ×3 (05:20→21:46)
[2021-05-06 06:17] LABS: Basophils # (auto) 0.1 10 ^3/uL (0-0.2); Basophils % (auto) 0.7 % (0.0-2.0); Eosinophils # (auto) 0.3 10 ^3/uL (0-0.8); Eosinophils % (auto) 2.5 % (0.0-7.0); Hematocrit 20.3 % (36.0-46.0); Hemoglobin 7.4 g/dL (12.2-16.2); Lymphocytes # (auto) 1.8 10 ^3/uL (0.4-5.4); Lymphocytes % (auto) 16.3 % (10.0-50.0); Mean Corpuscular Hemoglobin 35.3 pg (28.0-32.0); Mean Corpuscular Hgb Conc. 36.3 g/dL (32.0-36.0); Mean Corpuscular Volume 97.3 fL (80.0-100.0); Monocytes # (auto) 1.1 10 ^3/uL (0-1.3); Monocytes % (auto) 10.5 % (0.0-12.0); Neutrophils # (auto) 7.6 10 ^3/uL (1.6-8.6); Nucleated Red Blood Cells % 0.1 %; Red Blood Cells 2.08 10^6/uL (4.0-5.20); Red Cell Distribution Width 13.2 % (11.8-14.3); White Blood Cell 10.9 10^3/uL (4.4-10.8)
[2021-05-06 06:24] LABS: Albumin 2.6 g/dL (3.4-5.0); Calcium 6.9 mg/dL (8.5-10.1); Potassium 3.4 mmol/L (3.5-5.1)
[2021-05-06 06:30] LABS: BUN/Creatinine Ratio 5.8; Total Protein 6.4 g/dL (6.4-8.2)
[2021-05-06] MEDS: SEVELAMER 800 MG TAB PO SCH ×2 (08:00→12:00)
[2021-05-06] MEDS: Nepro With Carbsteady ButterPecan 8oz Carton PO SCH (08:00)
[2021-05-06] MEDS: ACETAMINOPHEN 325 MG TAB PO PRN (09:16)
[2021-05-06] MEDS: PIPERACILLIN-TAZOB 2.25GM 50 ML IV SCH (09:17)
[2021-05-06] MEDS: predniSONE 5 MG TAB PO SCH (09:17)
[2021-05-06] MEDS: PANTOPRAZOLE 40 MG TAB PO SCH (09:18)
[2021-05-06] MEDS: amLODIPine BESYLATE 5 MG TAB PO SCH (09:18)
[2021-05-06] MEDS: CARVEDILOL 3.125 MG TAB PO SCH ×2 (09:18→21:45)
[2021-05-06] MEDS: PROMETHAZINE HCL 25 MG/ML 1ML IV PRN (09:48)
[2021-05-06] MEDS ORDERED: LIDOCAINE 2%HCL (LOCAL ANESTH.) INJ 20ML MDV ONE ×3 (14:56→16:17)
[2021-05-06] MEDS ORDERED: MIDAZOLAM HCL 2MG/2ML 2ml VIAL (1mg/ml) ONE (14:57)
[2021-05-06] MEDS ORDERED: fentaNYL CITRATE 100 MCG/2 ML VL ONE (14:57)
[2021-05-06] MEDS ORDERED: HEPARIN SODIUM (PORCINE) 5000 UNITS/ML 1ML VIAL ONE (14:57)
[2021-05-06] MEDS: hydrALAZINE HCL 20 MG/ML VL IV PRN (17:47)
[2021-05-06] MEDS ORDERED: METOPROLOL TARTRATE 50 MG TAB PO ONE (20:30)
[2021-05-06] MEDS: IPRATROPIUM BROMIDE HFA AER IN SCH (22:00)
[2021-05-06] MEDS: ALBUTEROL SULF HFA 90MCG INH 200DOSE IN SCH (22:38)
[2021-05-07] VITALS (60 sets, daily range): BP systolic 121–202; BP diastolic 70–111
[2021-05-07] MEDS: ACETAMINOPHEN 325 MG TAB PO PRN (02:43)
[2021-05-07] MEDS: PROPRANOLOL HCL 20 MG TAB PO SCH ×4 (05:44→22:00)
[2021-05-07 06:13] LABS: Basophils # (auto) 0.1 10 ^3/uL (0-0.2); Eosinophils # (auto) 0.2 10 ^3/uL (0-0.8); Hematocrit 18.9 % (36.0-46.0); Monocytes # (auto) 1.3 10 ^3/uL (0-1.3); Neutrophils # (auto) 7.3 10 ^3/uL (1.6-8.6); Nucleated Red Blood Cells % 0.4 %; Red Blood Cells 1.93 10^6/uL (4.0-5.20); White Blood Cell 10.9 10^3/uL (4.4-10.8)
[2021-05-07 06:17] LABS: Basophils % (auto) 0.5 % (0.0-2.0); Lymphocytes % (auto) 18.7 % (10.0-50.0); Mean Corpuscular Hgb Conc. 35.7 g/dL (32.0-36.0); Mean Corpuscular Volume 98.1 fL (80.0-100.0); Monocytes % (auto) 12.3 % (0.0-12.0); Neutrophils % (auto) 66.5 % (37.0-80.0); Red Cell Distribution Width 13.4 % (11.8-14.3)
[2021-05-07] MEDS: ALBUTEROL SULF HFA 90MCG INH 200DOSE IN SCH ×3 (06:18→22:16)
[2021-05-07] MEDS: IPRATROPIUM BROMIDE HFA AER IN SCH ×3 (06:18→22:17)
[2021-05-07 06:21] LABS: Calcium 6.7 mg/dL (8.5-10.1); Potassium 3.4 mmol/L (3.5-5.1)
[2021-05-07 06:23] LABS: Hemoglobin 6.8 g/dL (12.2-16.2)
[2021-05-07 06:25] LABS: BUN/Creatinine Ratio 5.8
[2021-05-07] MEDS ORDERED: SODIUM CHL 0.9% 1000 ML BAG XX ONE (07:00)
[2021-05-07] MEDS: SEVELAMER 800 MG TAB PO SCH ×3 (07:34→19:44)
[2021-05-07] MEDS ORDERED: cefTRIAXone 1GM/50ML D5W 50 ML IV SCH (09:00)
[2021-05-07] MEDS: predniSONE 5 MG TAB PO SCH (09:30)
[2021-05-07] MEDS: amLODIPine BESYLATE 5 MG TAB PO SCH (09:31)
[2021-05-07] MEDS: CARVEDILOL 3.125 MG TAB PO SCH ×2 (09:31→21:19)
[2021-05-07] MEDS: PANTOPRAZOLE 40 MG TAB PO SCH (09:32)
[2021-05-07] MEDS: PROMETHAZINE HCL 25 MG/ML 1ML IV PRN (09:37)
[2021-05-07] MEDS: METOCLOPRAMIDE HCL 5MG/ml INJ 2ml VIAL IV PRN (12:47)
[2021-05-07] MEDS ORDERED: cloNIDine HCL 0.1 MG TAB ONE (16:38)
[2021-05-07] MEDS ORDERED: cloNIDine HCL 0.1 MG TAB PO ONE (16:45)
[2021-05-07] MEDS: Nepro With Carbsteady ButterPecan 8oz Carton PO SCH (19:44)
[2021-05-07] MEDS ORDERED: EPOETIN ALFA-EPBX 10,000 UNIT/1ML VIAL SC ONE (21:00)
[2021-05-07] MEDS: hydrALAZINE HCL 20 MG/ML VL IV PRN (21:35)
[2021-05-08 00:04] VITALS: BP 165/96
== END 2021-05-08 00:04 | disposition home health service (06) | DRG 314 ==
LOC: EDBD 19:16 → ER 19:16 → TELE-CENTR 23:27 → TELE-EAST 05-02 12:08 → ICU WEST 05-03 02:30
PROVIDERS: ADMIT Hospitalist; ATTEND Hospitalist
PROC: 5A1D70Z Performance of Urinary Filtration, Intermittent, Less than 6 Hours Per Day (ICD-10-PCS; 2021-05-02)
PROC: 5A12012 Performance of Cardiac Output, Single, Manual (ICD-10-PCS; principal; 2021-05-03)
PROC: 5A09357 Assistance with Respiratory Ventilation, Less than 24 Consecutive Hours, Continuous Positive Airway Pressure (ICD-10-PCS; 2021-05-03)
PROC: 5A1D70Z Performance of Urinary Filtration, Intermittent, Less than 6 Hours Per Day (ICD-10-PCS; 2021-05-03)
PROC: 05H933Z Insertion of Infusion Device into Right Brachial Vein, Percutaneous Approach (ICD-10-PCS; 2021-05-03)
PROC: 0JH63XZ Insertion of Tunneled Vascular Access Device into Chest Subcutaneous Tissue and Fascia, Percutaneous Approach (ICD-10-PCS; 2021-05-06)
PROC: 02H633Z Insertion of Infusion Device into Right Atrium, Percutaneous Approach (ICD-10-PCS; 2021-05-06)
PROC: B5181ZA Fluoroscopy of Superior Vena Cava using Low Osmolar Contrast, Guidance (ICD-10-PCS; 2021-05-06)
PROC: B548ZZA Ultrasonography of Superior Vena Cava, Guidance (ICD-10-PCS; 2021-05-06)
PROC: 5A1D70Z Performance of Urinary Filtration, Intermittent, Less than 6 Hours Per Day (ICD-10-PCS; 2021-05-06)
DX: T80.211A Bloodstream infection due to central venous catheter, initial encounter (principal); N18.6 End stage renal disease; J12.82 Pneumonia due to coronavirus disease 2019; J96.01 Acute respiratory failure with hypoxia; U07.1 COVID-19; A41.01 Sepsis due to Methicillin susceptible Staphylococcus aureus; N39.0 Urinary tract infection, site not specified; I13.2 Hypertensive heart and chronic kidney disease with heart failure and with stage 5 chronic kidney disease, or end stage renal disease; D63.1 Anemia in chronic kidney disease; K21.9 Gastro-esophageal reflux disease without esophagitis; E87.5 Hyperkalemia; Z99.2 Dependence on renal dialysis; E87.6 Hypokalemia; I50.9 Heart failure, unspecified
CPT/HCPCS: 36415; 36561; 36600; 71045; 76000; 76942; 77001; 80048; 80053; 80202; 81001; 82728; 82805; 83540; 83550; 83735; 83880; 84100; 84484; 85025; 85379; 85610; 85730; 86850; 86900; 86901; 86920; 87040; 87070; 87077; 87081; 87086; 87147; 87186; 87426; 90935; 93005; 93306; 93971; 94640; 94660; 96361; 96365; 96366; 96367; 96375; 99152; 99153; A4615; G0378; J0696; J1642; J1956; J2250; J2405; J2543; J3490

== ENCOUNTER 2021-05-12 15:24 | Emergency (ER) | payer OTHER ==
[~2021-05-12] VITALS: Ht 157.5 cm; Wt 106.6 kg
[~2021-05-12 15:24] MED LIST changes: +ATOR10TA PO; +CARV6.2551 PO; +CHOL20007 PO; -CLO3P TD; +CLON0.2D TD; +CLON0.2T PO; -CYCL1CAP PO; -ERGO1CAP23 PO; -FAMO-12 PO; -ISRA2.5C PO; -LEV250T PO; -METO-281 PO; +MIN25T PO; +PROP20TA73 PO; -SODB650T PO; -[UNRECOGNIZED DRUG - CODE] PO
[2021-05-12] MEDS ORDERED: SODIUM CHLORIDE 0.9% 1,000 ML IV ONE (16:00)
[2021-05-12 16:39] LABS: Basophils # (auto) 0 10 ^3/uL (0-0.2); Eosinophils # (auto) 0 10 ^3/uL (0-0.8); Eosinophils % (auto) 0.2 % (0.0-7.0); White Blood Cell 10.3 10^3/uL (4.4-10.8)
[2021-05-12 16:42] LABS: Basophils % (auto) 0.3 % (0.0-2.0); Hematocrit 18.8 % (36.0-46.0); Lymphocytes # (auto) 0.4 10 ^3/uL (0.4-5.4); Lymphocytes % (auto) 4.1 % (10.0-50.0); Mean Corpuscular Hemoglobin 36.7 pg (28.0-32.0); Mean Corpuscular Hgb Conc. 34.9 g/dL (32.0-36.0); Mean Corpuscular Volume 105.2 fL (80.0-100.0); Monocytes # (auto) 0.2 10 ^3/uL (0-1.3); Monocytes % (auto) 2.4 % (0.0-12.0); Neutrophils # (auto) 9.6 10 ^3/uL (1.6-8.6); Platelet Count (auto) 309 10^3/uL (140-450); Red Blood Cells 1.79 10^6/uL (4.0-5.20); Red Cell Distribution Width 18.7 % (11.8-14.3)
[2021-05-12 16:48] LABS: Alanine Aminotransferase 98 U/L (13-56); Albumin 3.1 g/dL (3.4-5.0); Anion Gap 13 (5-15); Aspartate Aminotransferase 28 U/L (15-37); BUN/Creatinine Ratio 4.1; Blood Urea Nitrogen 37 mg/dL (7-18); Calcium 6.4 mg/dL (8.5-10.1); Carbon Dioxide 25 mmol/L (21-32); Chloride 102 mmol/L (98-107); GFR African American 7 mL/min; GFR Non-African American 6 mL/min; Glucose 117 mg/dL (74-106); INR 0.99 (0.9-1.15); Potassium 3.4 mmol/L (3.5-5.1); Sodium 140 mmol/L (136-145)
[2021-05-12 16:51] LABS: Hemoglobin 6.6 g/dL (12.2-16.2)
[2021-05-12 16:52] LABS: Alkaline Phosphatase 100 U/L (45-117); Bilirubin, Total 0.8 mg/dL (0.2-1.0)
[2021-05-12 16:55] LABS: Magnesium 2.3 mg/dL (1.6-2.6)
[2021-05-12 17:00] LABS: Beta HCG, Quantitative < 1 mlU/mL (1-3)
[2021-05-12] MEDS ORDERED: ceFAZolin 1GM/50ML 100 ML IV ONE (18:45)
[2021-05-12 19:58] VITALS: BP 161/105
[2021-05-12 20:20] VITALS: BP 155/98
[2021-05-12 20:50] VITALS: BP 161/105
[2021-05-12 21:20] VITALS: BP 178/113
[2021-05-12 22:00] VITALS: BP 178/116
[2021-05-12 22:54] LABS: Basophils # (auto) 0 10 ^3/uL (0-0.2); Basophils % (auto) 0.5 % (0.0-2.0); Eosinophils # (auto) 0 10 ^3/uL (0-0.8); Eosinophils % (auto) 0.1 % (0.0-7.0); Hematocrit 20.7 % (36.0-46.0); Hemoglobin 7.3 g/dL (12.2-16.2); Lymphocytes # (auto) 0.8 10 ^3/uL (0.4-5.4); Lymphocytes % (auto) 9.5 % (10.0-50.0); Mean Corpuscular Hemoglobin 35.2 pg (28.0-32.0); Mean Corpuscular Hgb Conc. 35.1 g/dL (32.0-36.0); Mean Corpuscular Volume 100.5 fL (80.0-100.0); Monocytes # (auto) 0.5 10 ^3/uL (0-1.3); Monocytes % (auto) 5.3 % (0.0-12.0); Neutrophils # (auto) 7.2 10 ^3/uL (1.6-8.6); Neutrophils % (auto) 84.6 % (37.0-80.0); Platelet Count (auto) 265 10^3/uL (140-450); Red Blood Cells 2.06 10^6/uL (4.0-5.20); White Blood Cell 8.5 10^3/uL (4.4-10.8)
== END 2021-05-12 23:11 | disposition home or self-care (01) ==
LOC: ER 15:24
DX: I12.0 Hypertensive chronic kidney disease with stage 5 chronic kidney disease or end stage renal disease (principal); N18.6 End stage renal disease; D53.9 Nutritional anemia, unspecified; E03.9 Hypothyroidism, unspecified; K85.90 Acute pancreatitis without necrosis or infection, unspecified; E87.6 Hypokalemia; E44.1 Mild protein-calorie malnutrition; R53.1 Weakness; E78.5 Hyperlipidemia, unspecified; Z99.2 Dependence on renal dialysis; Z20.822 Contact with and (suspected) exposure to COVID-19; Z68.41 Body mass index [BMI] 40.0-44.9, adult; Z79.899 Other long term (current) drug therapy
CPT/HCPCS: 36415; 36430; 71045; 80053; 83690; 83735; 84443; 84484; 84702; 85025; 85049; 85610; 86850; 86900; 86901; 86920; 87426; 93005; 96361; 96365; 99291; J0690; J7040; P9016

== ENCOUNTER 2021-07-23 11:49 | Emergency (ER) | payer OTHER ==
[~2021-07-23] VITALS: Ht 152.4 cm; Wt 64.9 kg
[2021-07-23 13:19] LABS: Basophils # (auto) 0 10 ^3/uL (0-0.2); Eosinophils # (auto) 0.1 10 ^3/uL (0-0.8); Eosinophils % (auto) 0.6 % (0.0-7.0); Hematocrit 30.2 % (36.0-46.0); Hemoglobin 10.3 g/dL (12.2-16.2); Lymphocytes # (auto) 0.7 10 ^3/uL (0.4-5.4); Lymphocytes % (auto) 7.4 % (10.0-50.0); Monocytes # (auto) 0.4 10 ^3/uL (0-1.3)
[2021-07-23 13:21] LABS: Basophils % (auto) 0.2 % (0.0-2.0); Mean Corpuscular Hemoglobin 34.4 pg (28.0-32.0); Mean Corpuscular Hgb Conc. 34.2 g/dL (32.0-36.0); Mean Corpuscular Volume 100.8 fL (80.0-100.0); Monocytes % (auto) 3.9 % (0.0-12.0); Neutrophils # (auto) 8.7 10 ^3/uL (1.6-8.6); Neutrophils % (auto) 87.9 % (37.0-80.0); Red Blood Cells 2.99 10^6/uL (4.0-5.20); Red Cell Distribution Width 13.6 % (11.8-14.3); White Blood Cell 9.9 10^3/uL (4.4-10.8)
[2021-07-23 13:35] LABS: INR 0.96 (0.9-1.15)
[2021-07-23 13:39] LABS: Albumin 3.5 g/dL (3.4-5.0); Calcium 7.8 mg/dL (8.5-10.1)
[2021-07-23 13:42] LABS: BUN/Creatinine Ratio 5.4; Bilirubin, Total 0.6 mg/dL (0.2-1.0); Total Protein 7.4 g/dL (6.4-8.2)
[2021-07-23 13:52] LABS: Potassium 5.9 mmol/L (3.5-5.1)
[2021-07-23] MEDS ORDERED: DEXTROSE (50%) 50ML SYRG IV ONE ×2 (17:00→18:00)
[2021-07-23] MEDS ORDERED: SODIUM ZIRCONIUM CYCL 10 GM PAK PO ONE ×2 (17:00→18:00)
[2021-07-23] MEDS ORDERED: SODIUM BICARBONATE 8.4% INJ 50ML SYRINGE IV ONE ×2 (17:00→18:00)
[2021-07-23] MEDS ORDERED: InsuLIN REG 1unit/0.01ml Soln (100units/ml) IV ONE ×2 (17:00→18:00)
[2021-07-23] MEDS ORDERED: ALBUTEROL SULF 2.5 MG/0.5ML(0.5%) NEB SOLN NEB ONE ×2 (17:00→18:00)
[2021-07-23] MEDS ORDERED: CALCIUM GLUC 1,000mg/50ml-NS 50 ML IV ONE ×2 (17:00→18:00)
[2021-07-23] MEDS ORDERED: FUROSEMIDE 20 MG/2 ML VIAL IV ONE (18:00)
[2021-07-23] MEDS ORDERED: MORPHINE SULFATE 4 MG/ML SYR/VIAL ONE (18:33)
[2021-07-23] MEDS ORDERED: ONDANSETRON HCL 4 MG/2 ML VIAL ONE (18:33)
[2021-07-23] MEDS ORDERED: LORazepam 2MG/ML-1ML VIAL ONE (18:43)
[2021-07-23] MEDS ORDERED: ONDANSETRON HCL 4 MG/2 ML VIAL IV ONE (18:45)
[2021-07-23] MEDS ORDERED: LORazepam 2MG/ML-1ML VIAL IV ONE (18:45)
[2021-07-23] MEDS ORDERED: MORPHINE SULFATE 4 MG/ML SYR/VIAL IV ONE (18:45)
[2021-07-23] MEDS ORDERED: MORPHINE SULFATE INJECTION 2 MG/ML SYRG ONE (19:27)
[2021-07-23] MEDS ORDERED: MORPHINE SULFATE INJECTION 2 MG/ML SYRG IV ONE (19:30)
[2021-07-23 20:12] VITALS: BP 148/103
== END 2021-07-23 20:40 | disposition home or self-care (01) ==
LOC: ER 11:49
DX: T85.618A Breakdown (mechanical) of other specified internal prosthetic devices, implants and grafts, initial encounter (principal); I12.0 Hypertensive chronic kidney disease with stage 5 chronic kidney disease or end stage renal disease; N18.6 End stage renal disease; E78.5 Hyperlipidemia, unspecified; E87.5 Hyperkalemia; I95.9 Hypotension, unspecified; I51.7 Cardiomegaly
CPT/HCPCS: 36415; 36556; 71045; 80053; 85025; 85610; 85730; 94640; 96365; 96375; 96376; 99285; J0610; J1815; J1940; J2060; J2270; J2405; J7042

== ENCOUNTER 2022-06-15 18:31 | Emergency (ER) | payer OTHER ==
[~2022-06-15] VITALS: Ht 162.6 cm; Wt 72.0 kg
[2022-06-15 21:06] VITALS: BP 147/102
== END 2022-06-16 04:37 | disposition left against medical advice (07) ==
LOC: ER 18:31
DX: I10 Essential (primary) hypertension (principal); Z53.21 Procedure and treatment not carried out due to patient leaving prior to being seen by health care provider

== ENCOUNTER 2023-07-30 09:27 | Emergency (ER) | payer OTHER ==
[~2023-07-30] VITALS: Ht 160 cm; Wt 78.1 kg
[~2023-07-30 09:27] MED LIST changes: -CLON0.2D TD; +CLON0.2D13 TD; +PROP1TAB53 PO; -PROP20TA73 PO
[2023-07-30] MEDS ORDERED: ONDANSETRON HCL 4 MG/2 ML VIAL IV ONE (10:15)
[2023-07-30] MEDS ORDERED: DICYCLOMINE HCL (10MG/ML) 2 ML AMPULE IM ONE (10:15)
[2023-07-30 10:23] VITALS: PULSE 81; RESP 16; O2SAT 95
[2023-07-30 10:26] LABS: Basophils # (auto) 0 10 ^3/uL (0-0.2); Eosinophils # (auto) 0.1 10 ^3/uL (0-0.8); Lymphocytes % (auto) 22.3 % (10.0-50.0); Mean Corpuscular Hgb Conc. 32.8 g/dL (32.0-36.0); Mean Corpuscular Volume 107.2 fL (80.0-100.0); Monocytes # (auto) 0.8 10 ^3/uL (0-1.3); Monocytes % (auto) 9.9 % (0.0-12.0)
[2023-07-30 10:28] LABS: Basophils % (auto) 0.3 % (0.0-2.0); Eosinophils % (auto) 0.9 % (0.0-7.0); Hematocrit 36.6 % (36.0-46.0); Lymphocytes # (auto) 1.7 10 ^3/uL (0.4-5.4); Mean Corpuscular Hemoglobin 35.1 pg (28.0-32.0); Neutrophils # (auto) 5.2 10 ^3/uL (1.6-8.6); Neutrophils % (auto) 66.6 % (37.0-80.0); Nucleated Red Blood Cells % 0.1 %; Red Blood Cells 3.42 10^6/uL (4.0-5.20); Red Cell Distribution Width 16.6 % (11.8-14.3); White Blood Cell 7.8 10^3/uL (4.4-10.8)
[2023-07-30 10:40] LABS: Alanine Aminotransferase 22 U/L (7-40); Albumin 4.5 g/dL (3.2-4.8); Alkaline Phosphatase 51 U/L (46-116); Aspartate Aminotransferase 11 U/L (13-40); BUN/Creatinine Ratio 5.7 (10.0-20.0); Blood Urea Nitrogen 69 mg/dL (9-23); Calcium 7.1 mg/dL (8.5-10.1); Chloride 99 mmol/L (98-107); Glucose 89 mg/dL (74-106); Lipase 54 U/L (12-53); Sodium 138 mmol/L (136-145); Total Protein 7.3 g/dL (5.7-8.2)
[2023-07-30 11:05] LABS: INR 1.03 (0.9-1.15); Prothrombin Time 10.8 sec (9.3-11.8)
[2023-07-30] MEDS ORDERED: MORPHINE SULFATE 4 MG/ML SYR/VIAL IV ONE (12:00)
[2023-07-30 13:00] VITALS: TEMP 98
[2023-07-30 14:00] VITALS: BP 129/90; PULSE 79; RESP 17; O2SAT 95
[2023-07-30] MEDS ORDERED: ZOFR4T PO (14:52)
[2023-07-30] MEDS ORDERED: METR375C PO (14:52)
[2023-07-30] MEDS ORDERED: AML5T PO (14:52)
[2023-07-30] MEDS ORDERED: PANT40TA2 PO (14:52)
[2023-07-30] MEDS ORDERED: HYDR-4902 PO (14:52)
== END 2023-07-30 18:18 | disposition home or self-care (01) ==
LOC: ER 09:27
DX: K29.80 Duodenitis without bleeding (principal); R10.2 Pelvic and perineal pain; I12.0 Hypertensive chronic kidney disease with stage 5 chronic kidney disease or end stage renal disease; N18.6 End stage renal disease; R07.89 Other chest pain; E78.5 Hyperlipidemia, unspecified; Z99.2 Dependence on renal dialysis; Z90.89 Acquired absence of other organs; Z79.899 Other long term (current) drug therapy
CPT/HCPCS: 36415; 71045; 74176; 80053; 83690; 84702; 85025; 85610; 96372; 96374; 96375; 99285; J0500; J2270; J2405

== ENCOUNTER 2023-09-06 13:41 | Emergency (ER) | payer OTHER, MEDICAID ==
[~2023-09-06] VITALS: Ht 162.6 cm; Wt 78.2 kg
[~2023-09-06 13:41] MED LIST changes: +AML5T PO; +HYDR-4902 PO; +METR375C PO; +PANT40TA2 PO; +ZOFR4T PO
[2023-09-06 14:48] LABS: Basophils # (auto) 0 10 ^3/uL (0-0.2); Basophils % (auto) 0.1 % (0.0-2.0); Eosinophils # (auto) 0 10 ^3/uL (0-0.8); Hemoglobin 13.1 g/dL (12.2-16.2); Lymphocytes # (auto) 0.4 10 ^3/uL (0.4-5.4); Lymphocytes % (auto) 3.3 % (10.0-50.0); Mean Corpuscular Hemoglobin 35.9 pg (28.0-32.0); Mean Corpuscular Hgb Conc. 33.6 g/dL (32.0-36.0); Mean Corpuscular Volume 106.8 fL (80.0-100.0); Monocytes # (auto) 0.2 10 ^3/uL (0-1.3); Neutrophils # (auto) 10.3 10 ^3/uL (1.6-8.6); Neutrophils % (auto) 94.6 % (37.0-80.0); Red Blood Cells 3.65 10^6/uL (4.0-5.20); White Blood Cell 10.8 10^3/uL (4.4-10.8)
[2023-09-06 15:01] LABS: Alanine Aminotransferase 49 U/L (7-40); Albumin 4.9 g/dL (3.2-4.8); Alkaline Phosphatase 67 U/L (46-116); Anion Gap 13 (5-15); Aspartate Aminotransferase 18 U/L (13-40); BUN/Creatinine Ratio 3.3 (10.0-20.0); Blood Urea Nitrogen 22 mg/dL (9-23); Calcium 8.7 mg/dL (8.5-10.1); Carbon Dioxide 26 mmol/L (20-30); Chloride 101 mmol/L (98-107); Glucose 146 mg/dL (74-106); Potassium 4.2 mmol/L (3.5-5.1); Sodium 140 mmol/L (136-145)
[2023-09-06 15:02] LABS: Bilirubin, Total 0.6 mg/dL (0.2-1.0); Total Protein 8.1 g/dL (5.7-8.2)
[2023-09-06] MEDS ORDERED: ACETAMINOPHEN 500 MG TAB PO ONE (15:30)
[2023-09-06] MEDS ORDERED: ACET500T58 PO (21:18)
[2023-09-06] MEDS ORDERED: ZOFR4T PO (21:18)
[2023-09-06] MEDS ORDERED: AMOX500T86 PO (21:18)
[2023-09-06] MEDS ORDERED: AMOXICILLIN/CLAVUL 875 MG TAB PO ONE (21:30)
[2023-09-06 21:50] VITALS: BP 132/75; PULSE 89; RESP 17; TEMP 99.1; O2SAT 95
== END 2023-09-06 21:56 | disposition home or self-care (01) ==
LOC: ER 13:41
DX: N39.0 Urinary tract infection, site not specified (principal); R10.2 Pelvic and perineal pain; I12.0 Hypertensive chronic kidney disease with stage 5 chronic kidney disease or end stage renal disease; N18.6 End stage renal disease; E78.5 Hyperlipidemia, unspecified; Z99.2 Dependence on renal dialysis; Z90.89 Acquired absence of other organs; Z79.1 Long term (current) use of non-steroidal anti-inflammatories (NSAID); Z79.899 Other long term (current) drug therapy
CPT/HCPCS: 36415; 80053; 84702; 85025

== ENCOUNTER 2024-04-08 12:15 | Inpatient (IN) | payer OTHER ==
[~2024-04-08] VITALS: Ht 162.6 cm; Wt 71.3 kg
[~2024-04-08 12:15] MED LIST changes: +ACET500T58 PO; +AMOX500T86 PO
[2024-04-08] MEDS: ONDANSETRON HCL 4 MG/2 ML VIAL IV ONE (14:39)
[2024-04-08] MEDS: PROCHLORPERAZINE EDISYLATE 5 MG/ML 2ML VIAL IV ONE (15:47)
[2024-04-08] MEDS: hydrALAZINE HCL 20 MG/ML VL IV ONE (15:48)
[2024-04-08 16:06] LABS: Basophils # (auto) 0 10 ^3/uL (0-0.2); Basophils % (auto) 0.2 % (0.0-2.0); Eosinophils # (auto) 0.1 10 ^3/uL (0-0.8); Eosinophils % (auto) 1.3 % (0.0-7.0); Monocytes # (auto) 0.6 10 ^3/uL (0-1.3); Nucleated Red Blood Cells % 0.1 %
[2024-04-08 16:09] LABS: Hematocrit 40.6 % (36.0-46.0); Hemoglobin 13.2 g/dL (12.2-16.2); Lymphocytes # (auto) 0.6 10 ^3/uL (0.4-5.4); Lymphocytes % (auto) 7.4 % (10.0-50.0); Mean Corpuscular Hemoglobin 34.5 pg (28.0-32.0); Mean Corpuscular Hgb Conc. 32.5 g/dL (32.0-36.0); Mean Corpuscular Volume 106.2 fL (80.0-100.0); Neutrophils # (auto) 7.1 10 ^3/uL (1.6-8.6); Neutrophils % (auto) 84.1 % (37.0-80.0); Red Blood Cells 3.82 10^6/uL (4.0-5.20); White Blood Cell 8.4 10^3/uL (4.4-10.8)
[2024-04-08 16:13] LABS: Chloride 106 mmol/L (98-107); Sodium 141 mmol/L (136-145)
[2024-04-08 16:14] LABS: Anion Gap 15 (5-15); Calcium 7.3 mg/dL (8.5-10.1); Carbon Dioxide 20 mmol/L (20-30)
[2024-04-08 16:19] LABS: Blood Urea Nitrogen 66 mg/dL (9-23); Glucose 70 mg/dL (74-106)
[2024-04-08 16:30] LABS: Potassium 6.2 mmol/L (3.5-5.1)
[2024-04-08] MEDS: ALBUTEROL SULF 2.5 MG/0.5ML(0.5%) NEB SOLN HHN ONE (16:48)
[2024-04-08] MEDS ORDERED: MORPHINE SULFATE INJ 2 MG/ml SYRG IV PRN (17:00)
[2024-04-08] MEDS ORDERED: ONDANSETRON HCL 4 MG/2 ML VIAL IV PRN (17:00)
[2024-04-08] MEDS ORDERED: NITROGLYCERIN 0.4 MG SL TAB SL PRN (17:00)
[2024-04-08 17:23] VITALS: PULSE 144; RESP 20; O2SAT 95
[2024-04-08] MEDS: CALCIUM GLUC 1,000mg/50ml-NS 50 ML IV ONE (17:26)
[2024-04-08] MEDS: SODIUM ZIRCONIUM CYCL 10 GM PAK PO ONE (17:30)
[2024-04-08] MEDS: ACETAMINOPHEN 325 MG TAB PO ONE (17:30)
[2024-04-08] MEDS: DEXTROSE (50%) 50ML SYRG IV ONE (17:41)
[2024-04-08] MEDS: SODIUM BICARB 8.4% 50Meq/50ml SYR Vial IV ONE (17:41)
[2024-04-08] MEDS: InsuLIN REG 1unit/0.01ml Soln (100units/ml) IV ONE (17:49)
[2024-04-08] MEDS: LABETALOL HCL 5 MG/ML 4ML SYRINGE IV ONE (18:42)
[2024-04-08 19:40] VITALS: PULSE 124; RESP 21; O2SAT 95
[2024-04-08] MEDS: dilTIAZem 25 MG/5 ML VIAL IV ONE (22:18)
[2024-04-09] VITALS (10 sets, daily range): BP systolic 155–192; BP diastolic 100–118; PULSE 78–105; RESP 18–20; TEMP 97.7–98.4; O2SAT 94–100
[2024-04-09] MEDS: ACETAMINOPHEN 325 MG TAB PO ONE ×2 (00:41→08:11)
[2024-04-09 04:39] LABS: Basophils # (auto) 0 10 ^3/uL (0-0.2); Eosinophils # (auto) 0 10 ^3/uL (0-0.8); Hemoglobin 13.2 g/dL (12.2-16.2); Lymphocytes # (auto) 0.8 10 ^3/uL (0.4-5.4); Neutrophils # (auto) 3.3 10 ^3/uL (1.6-8.6)
[2024-04-09 04:43] LABS: Basophils % (auto) 0.3 % (0.0-2.0); Eosinophils % (auto) 0.5 % (0.0-7.0); Hematocrit 39.1 % (36.0-46.0); Lymphocytes % (auto) 17.5 % (10.0-50.0); Mean Corpuscular Hemoglobin 34.5 pg (28.0-32.0); Mean Corpuscular Hgb Conc. 33.8 g/dL (32.0-36.0); Monocytes # (auto) 0.5 10 ^3/uL (0-1.3); Monocytes % (auto) 11.6 % (0.0-12.0); Neutrophils % (auto) 70.1 % (37.0-80.0); Nucleated Red Blood Cells % 0.1 %; Red Blood Cells 3.83 10^6/uL (4.0-5.20); Red Cell Distribution Width 14.2 % (11.8-14.3); White Blood Cell 4.6 10^3/uL (4.4-10.8)
[2024-04-09 04:57] LABS: Alanine Aminotransferase 33 U/L (7-40); Albumin 4.5 g/dL (3.2-4.8); Alkaline Phosphatase 81 U/L (46-116); Anion Gap 12 (5-15); Aspartate Aminotransferase 16 U/L (13-40); BUN/Creatinine Ratio 4.7 (10.0-20.0); Bilirubin, Total 0.5 mg/dL (0.2-1.0); Calcium 8.4 mg/dL (8.5-10.1); Carbon Dioxide 25 mmol/L (20-30); Chloride 103 mmol/L (98-107); Glucose 84 mg/dL (74-106); Potassium 4.9 mmol/L (3.5-5.1); Sodium 140 mmol/L (136-145); Total Protein 7.3 g/dL (5.7-8.2)
[2024-04-09 05:27] LABS: Blood Urea Nitrogen 40 mg/dL (9-23)
[2024-04-09] MEDS: SODIUM CHL 0.9% 1000 ML BAG XX ONE (07:22)
[2024-04-09] MEDS ORDERED: LOSA-534 PO (11:18)
[2024-04-09] MEDS ORDERED: SODB50I PO (11:18)
[2024-04-09] MEDS ORDERED: NIFE1TAB31 PO (11:18)
[2024-04-09] MEDS: LABETALOL HCL 5 MG/ML 4ML SYRINGE IV ONE (17:14)
[2024-04-09] MEDS: VANCOMYCIN HCL 125 MG CAP PO SCH ×2 (17:14→22:40)
[2024-04-09] MEDS: cloNIDine HCL 0.1 MG TAB PO ONE (20:23)
[2024-04-09] MEDS ORDERED: VANCOMYCIN PER PHARMACY 0 MG IV SCH (21:00)
[2024-04-09] MEDS: VANCOMYCIN 1GM/200ML 200 ML IV ONE (22:41)
[2024-04-09] MEDS: metroNIDAZOLE 500MG/100ML 100 ML IV SCH (22:41)
[2024-04-09] MEDS: ACETAMINOPHEN 325 MG TAB PO PRN (22:42)
[2024-04-10] VITALS (8 sets, daily range): BP systolic 128–158; BP diastolic 78–113; PULSE 89–110; RESP 16–20; TEMP 97.8–98.6; O2SAT 95–98
[2024-04-10] MEDS ORDERED: cloNIDine 0.2 mg/24hr 7DAY PATCH TD SCH (00:15)
[2024-04-10] MEDS: MINOXIDIL 2.5 MG TAB PO SCH (00:15)
[2024-04-10] MEDS ORDERED: VANC125C3 PO (00:16)
[2024-04-10] MEDS: LOSARTAN POTASSIUM 50 MG TAB PO SCH (02:38)
[2024-04-10 05:44] LABS: Basophils # (auto) 0 10 ^3/uL (0-0.2); Eosinophils # (auto) 0.1 10 ^3/uL (0-0.8); Hemoglobin 13.9 g/dL (12.2-16.2); Lymphocytes # (auto) 0.8 10 ^3/uL (0.4-5.4); Nucleated Red Blood Cells % 0.1 %
[2024-04-10 05:47] LABS: Basophils % (auto) 0.8 % (0.0-2.0); Hematocrit 41.6 % (36.0-46.0); Lymphocytes % (auto) 22.8 % (10.0-50.0); Mean Corpuscular Hemoglobin 34.4 pg (28.0-32.0); Mean Corpuscular Hgb Conc. 33.4 g/dL (32.0-36.0); Mean Corpuscular Volume 103.1 fL (80.0-100.0); Monocytes # (auto) 0.6 10 ^3/uL (0-1.3); Monocytes % (auto) 16.8 % (0.0-12.0); Neutrophils # (auto) 2.1 10 ^3/uL (1.6-8.6); Neutrophils % (auto) 56.6 % (37.0-80.0); Red Blood Cells 4.03 10^6/uL (4.0-5.20); Red Cell Distribution Width 13.8 % (11.8-14.3); White Blood Cell 3.6 10^3/uL (4.4-10.8)
[2024-04-10 05:49] LABS: Alanine Aminotransferase 32 U/L (7-40); Alkaline Phosphatase 76 U/L (46-116); Anion Gap 13 (5-15); Aspartate Aminotransferase 19 U/L (13-40); BUN/Creatinine Ratio 2.9 (10.0-20.0); Blood Urea Nitrogen 20 mg/dL (9-23); Calcium 9.5 mg/dL (8.7-10.4); Carbon Dioxide 26 mmol/L (20-30); Chloride 98 mmol/L (98-107); Glucose 90 mg/dL (74-106); Potassium 4.8 mmol/L (3.5-5.1); Sodium 137 mmol/L (136-145)
[2024-04-10 05:50] LABS: Albumin 4.5 g/dL (3.2-4.8)
[2024-04-10 05:51] LABS: Bilirubin, Total 0.5 mg/dL (0.2-1.0); Total Protein 7.8 g/dL (5.7-8.2)
[2024-04-10] MEDS: CARVEDILOL 3.125 MG TAB PO SCH (09:29)
[2024-04-10] MEDS: predniSONE 5 MG TAB PO SCH (10:38)
[2024-04-10] MEDS: CHOLECALCIFEROL (VITD3) 1,000UNIT=25mCg TAB PO SCH (10:38)
[2024-04-10] MEDS: FERROUS SULFATE 325mg EC TAB PO SCH (10:39)
[2024-04-10] MEDS: PANTOPRAZOLE 40 MG TAB PO SCH (10:39)
[2024-04-10] MEDS: NIFEdipine ER 30 MG TAB PO SCH (10:43)
[2024-04-10] MEDS: cefTRIAXone 2GM/50ML D5W 50 ML IV SCH (13:00)
[2024-04-10] MEDS: ATORVASTATIN 20 MG TAB PO SCH (18:00)
== END 2024-04-10 18:05 | disposition home or self-care (01) | DRG 698 ==
LOC: ER 12:15 → TELE 17:03 → OBSVTOIN 19:07 → TELE-WESTW 04-09 09:48
PROVIDERS: ADMIT Student in an Organized Health Care Education/Training Program; ATTEND Student in an Organized Health Care Education/Training Program
PROC: 5A1D70Z Performance of Urinary Filtration, Intermittent, Less than 6 Hours Per Day (ICD-10-PCS; principal; 2024-04-09)
DX: T86.11 Kidney transplant rejection (principal); N18.6 End stage renal disease; I16.1 Hypertensive emergency; D84.9 Immunodeficiency, unspecified; I12.0 Hypertensive chronic kidney disease with stage 5 chronic kidney disease or end stage renal disease; A04.72 Enterocolitis due to Clostridium difficile, not specified as recurrent; E66.01 Morbid (severe) obesity due to excess calories; E87.5 Hyperkalemia; K44.9 Diaphragmatic hernia without obstruction or gangrene; Y83.8 Other surgical procedures as the cause of abnormal reaction of the patient, or of later complication, without mention of misadventure at the time of the procedure; Z99.2 Dependence on renal dialysis; Z79.52 Long term (current) use of systemic steroids; Z79.1 Long term (current) use of non-steroidal anti-inflammatories (NSAID); Z79.899 Other long term (current) drug therapy; Z82.49 Family history of ischemic heart disease and other diseases of the circulatory system; Z68.27 Body mass index [BMI] 27.0-27.9, adult; Y92.89 Other specified places as the place of occurrence of the external cause; Z83.3 Family history of diabetes mellitus
CPT/HCPCS: 36415; 71045; 74176; 80048; 80053; 80202; 82962; 85025; 87040; 87045; 87427; 87493; 90935; 90937; 93005; 94640; 96374; 96375; 99291; G0378; J1815; J2405; J3490

== ENCOUNTER 2024-05-10 08:18 | Emergency (ER) | payer OTHER ==
[~2024-05-10] VITALS: Ht 134.6 cm; Wt 75.6 kg
[~2024-05-10 08:18] MED LIST changes: -AML5T PO; -AMOX500T86 PO; -CLON0.2T PO; +LOSA-534 PO; -METR375C PO; +NIFE1TAB31 PO; -PANT40TA2 PO; -PROP1TAB53 PO; +VANC125C3 PO
[2024-05-10] MEDS: ONDANSETRON HCL 4 MG/2 ML VIAL IV ONE ×3 (09:10→12:27)
[2024-05-10] MEDS: MORPHINE SULFATE 4 MG/ML SYR/VIAL IV ONE ×3 (09:10→12:27)
[2024-05-10] MEDS: hydrALAZINE HCL 20 MG/ML VL IV ONE ×2 (09:15→13:10)
[2024-05-10 09:18] LABS: Basophils # (auto) 0 10 ^3/uL (0-0.2); Basophils % (auto) 0.4 % (0.0-2.0); Eosinophils # (auto) 0.1 10 ^3/uL (0-0.8); Eosinophils % (auto) 1.5 % (0.0-7.0); Hematocrit 39.6 % (36.0-46.0); Hemoglobin 13.2 g/dL (12.2-16.2); Lymphocytes # (auto) 1.9 10 ^3/uL (0.4-5.4); Lymphocytes % (auto) 19.3 % (10.0-50.0); Mean Corpuscular Hemoglobin 33.6 pg (28.0-32.0); Mean Corpuscular Hgb Conc. 33.2 g/dL (32.0-36.0); Mean Corpuscular Volume 101.3 fL (80.0-100.0); Monocytes # (auto) 0.8 10 ^3/uL (0-1.3); Monocytes % (auto) 8.5 % (0.0-12.0); Neutrophils % (auto) 70.3 % (37.0-80.0); Nucleated Red Blood Cells % 0.1 %; Red Blood Cells 3.92 10^6/uL (4.0-5.20); Red Cell Distribution Width 14.7 % (11.8-14.3); White Blood Cell 9.9 10^3/uL (4.4-10.8)
[2024-05-10 09:33] LABS: Alanine Aminotransferase 28 U/L (7-40); Albumin 4.5 g/dL (3.2-4.8); Alkaline Phosphatase 87 U/L (46-116); Anion Gap 14 (5-15); Aspartate Aminotransferase 19 U/L (13-40); BUN/Creatinine Ratio 4.4 (10.0-20.0); Blood Urea Nitrogen 37 mg/dL (9-23); Calcium 8.3 mg/dL (8.5-10.1); Carbon Dioxide 22 mmol/L (20-30); Chloride 102 mmol/L (98-107); Glucose 83 mg/dL (74-106); Potassium 5.1 mmol/L (3.5-5.1); Sodium 138 mmol/L (136-145); Total Protein 7.3 g/dL (5.7-8.2)
[2024-05-10 11:02] LABS: Lipase 63 U/L (12-53)
[2024-05-10] MEDS: cloNIDine HCL 0.1 MG TAB PO ONE (11:13)
[2024-05-10] MEDS: PIPERACILLIN-TAZOB 2.25GM 50 ML IV ONE (13:14)
[2024-05-10] MEDS: HYDROmorphone HCL 2 MG/ML VL/or syr IV ONE ×2 (13:46→14:50)
[2024-05-10 15:46] VITALS: BP 183/116; PULSE 101; RESP 12; O2SAT 95
== END 2024-05-10 16:00 | disposition admitted as inpatient to this hospital (09) ==
LOC: ER 08:18
DX: I12.0 Hypertensive chronic kidney disease with stage 5 chronic kidney disease or end stage renal disease (principal); R10.2 Pelvic and perineal pain; N18.6 End stage renal disease; R10.84 Generalized abdominal pain; Z98.890 Other specified postprocedural states; Z79.899 Other long term (current) drug therapy
CPT/HCPCS: 36415; 74176; 80053; 83690; 84702; 85025; 96365; 96367; 96375; 96376; 99285; J0360; J1170; J2270; J2405; J2543

== ENCOUNTER 2024-05-11 03:10 | Inpatient (IN) | payer OTHER ==
[~2024-05-11] VITALS: Ht 162.6 cm; Wt 73.0 kg
[2024-05-11] VITALS (7 sets, daily range): BP systolic 153–177; BP diastolic 87–97; PULSE 64–140; RESP 16–20; TEMP 99.3–101.1; O2SAT 94–99
[2024-05-11] MEDS: ONDANSETRON HCL 4 MG/2 ML VIAL IV ONE (03:45)
[2024-05-11] MEDS: LABETALOL HCL 5 MG/ML 4ML SYRINGE IV ONE ×2 (03:45→18:41)
[2024-05-11 04:04] LABS: Alanine Aminotransferase 23 U/L (7-40); Albumin 4.2 g/dL (3.2-4.8); Alkaline Phosphatase 80 U/L (46-116); Anion Gap 17 (5-15); Aspartate Aminotransferase 24 U/L (13-40); BUN/Creatinine Ratio 4.2 (10.0-20.0); Bilirubin, Total 0.8 mg/dL (0.2-1.0); Blood Urea Nitrogen 42 mg/dL (9-23); Calcium 8.9 mg/dL (8.7-10.4); Carbon Dioxide 18 mmol/L (20-30); Chloride 102 mmol/L (98-107); Glucose 70 mg/dL (74-106); Lipase 50 U/L (12-53); Sodium 137 mmol/L (136-145); Total Protein 7.1 g/dL (5.7-8.2)
[2024-05-11 04:09] LABS: Basophils # (auto) 0 10 ^3/uL (0-0.2); Basophils % (auto) 0.2 % (0.0-2.0); Eosinophils # (auto) 0.1 10 ^3/uL (0-0.8); Eosinophils % (auto) 0.4 % (0.0-7.0); Hematocrit 41.2 % (36.0-46.0); Hemoglobin 13.6 g/dL (12.2-16.2); Lymphocytes # (auto) 0.9 10 ^3/uL (0.4-5.4); Lymphocytes % (auto) 6.6 % (10.0-50.0); Mean Corpuscular Hemoglobin 32.7 pg (28.0-32.0); Mean Corpuscular Volume 99.3 fL (80.0-100.0); Monocytes # (auto) 0.9 10 ^3/uL (0-1.3); Monocytes % (auto) 6.2 % (0.0-12.0); Neutrophils # (auto) 12.3 10 ^3/uL (1.6-8.6); Neutrophils % (auto) 86.6 % (37.0-80.0); Red Blood Cells 4.15 10^6/uL (4.0-5.20); Red Cell Distribution Width 14.4 % (11.8-14.3); White Blood Cell 14.2 10^3/uL (4.4-10.8)
[2024-05-11 04:35] LABS: Potassium 5.6 mmol/L (3.5-5.1)
[2024-05-11] MEDS: PROCHLORPERAZINE EDISYLATE 5 MG/ML 2ML VIAL IM ONE (06:57)
[2024-05-11] MEDS: hydrALAZINE HCL 25 MG TAB PO ONE (07:19)
[2024-05-11] MEDS ORDERED: NITROGLYCERIN 0.4 MG SL TAB SL PRN (07:45)
[2024-05-11] MEDS ORDERED: MORPHINE SULFATE INJ 2 MG/ml SYRG IV PRN ×2 (07:45→08:00)
[2024-05-11 07:52] LABS: Basophils # (auto) 0 10 ^3/uL (0-0.2); Basophils % (auto) 0.1 % (0.0-2.0); Eosinophils # (auto) 0 10 ^3/uL (0-0.8); Eosinophils % (auto) 0.2 % (0.0-7.0); Hematocrit 43.4 % (36.0-46.0); Hemoglobin 14.2 g/dL (12.2-16.2); Lymphocytes # (auto) 0.8 10 ^3/uL (0.4-5.4); Lymphocytes % (auto) 6.5 % (10.0-50.0); Mean Corpuscular Hgb Conc. 32.7 g/dL (32.0-36.0); Mean Corpuscular Volume 100.9 fL (80.0-100.0); Monocytes # (auto) 0.9 10 ^3/uL (0-1.3); Monocytes % (auto) 7.3 % (0.0-12.0); Neutrophils # (auto) 10.4 10 ^3/uL (1.6-8.6); Neutrophils % (auto) 85.9 % (37.0-80.0); Nucleated Red Blood Cells % 0.1 %; Red Cell Distribution Width 14.6 % (11.8-14.3); White Blood Cell 12.2 10^3/uL (4.4-10.8)
[2024-05-11 08:11] LABS: Alanine Aminotransferase 21 U/L (7-40); Albumin 4.6 g/dL (3.2-4.8); Alkaline Phosphatase 88 U/L (46-116); Anion Gap 17 (5-15); Aspartate Aminotransferase 17 U/L (13-40); BUN/Creatinine Ratio 4.5 (10.0-20.0); Blood Urea Nitrogen 47 mg/dL (9-23); Carbon Dioxide 22 mmol/L (20-30); Chloride 100 mmol/L (98-107); Glucose 59 mg/dL (74-106); Sodium 139 mmol/L (136-145)
[2024-05-11 08:12] LABS: Bilirubin, Total 0.9 mg/dL (0.2-1.0); Total Protein 7.5 g/dL (5.7-8.2)
[2024-05-11] MEDS ORDERED: PIPERACILLIN-TAZOB 0.75 GM in D5W 5% 50 ML IV SCH (08:15)
[2024-05-11] MEDS: CALCIUM GLUC 1,000mg/50ml-NS 50 ML IV ONE (08:43)
[2024-05-11] MEDS: hydrALAZINE HCL 20 MG/ML VL IV PRN (08:56)
[2024-05-11] MEDS: InsuLIN REG 1unit/0.01ml Soln (100units/ml) IV ONE (09:05)
[2024-05-11] MEDS: DEXTROSE (50%) 50ML SYRG IV ONE ×2 (09:06→11:16)
[2024-05-11 09:12] LABS: INR 1.08 (0.9-1.15); Prothrombin Time 11.4 sec (9.3-11.8)
[2024-05-11 09:12] LABS: Potassium 6.3 mmol/L (3.5-5.1)
[2024-05-11] MEDS: PIPERACILLIN-TAZOB 2.25GM 50 ML IV SCH (09:13)
[2024-05-11] MEDS: SODIUM CHL 0.9% 1000 ML BAG XX ONE (09:23)
[2024-05-11] MEDS: ONDANSETRON HCL 4 MG/2 ML VIAL IV PRN (09:40)
[2024-05-11] MEDS: CARVEDILOL 12.5 MG TAB PO SCH (09:44)
[2024-05-11] MEDS ORDERED: LABETALOL HCL 5 MG/ML 4ML SYRINGE IV ONE (11:15)
[2024-05-11] MEDS: METOCLOPRAMIDE HCL 5MG/ml INJ 2ml VIAL IV ONE (11:17)
[2024-05-11] MEDS: LABETALOL HCL 5 MG/ML ML 20ML VIAL IV ONE (11:24)
[2024-05-11] MEDS ORDERED: NIFEdipine ER 30 MG TAB PO ONE (18:45)
[2024-05-11] MEDS ORDERED: hydrALAZINE HCL 20 MG/ML VL IV ONE (18:45)
[2024-05-11] MEDS: NIFEdipine ER 30 MG TAB PO ONE (18:51)
[2024-05-11] MEDS: LOSARTAN POTASSIUM 50 MG TAB PO ONE (18:51)
[2024-05-11] MEDS: CARVEDILOL 3.125 MG TAB PO SCH (22:00)
[2024-05-11] MEDS: cloNIDine HCL 0.1 MG TAB PO SCH (23:16)
[2024-05-11] MEDS: ATORVASTATIN 20 MG TAB PO SCH (23:16)
[2024-05-11] MEDS: MORPHINE SULFATE INJ 2 MG/ml SYRG IV PRN (23:56)
[2024-05-12] VITALS (8 sets, daily range): BP systolic 130–154; BP diastolic 66–93; PULSE 102–125; RESP 16–20; TEMP 97.7–99.3; O2SAT 93–97
[2024-05-12 05:56] LABS: Basophils # (auto) 0 10 ^3/uL (0-0.2); Basophils % (auto) 0.4 % (0.0-2.0); Eosinophils # (auto) 0.1 10 ^3/uL (0-0.8); Eosinophils % (auto) 1.3 % (0.0-7.0); Hematocrit 36.6 % (36.0-46.0); Hemoglobin 12.5 g/dL (12.2-16.2); Lymphocytes # (auto) 1.3 10 ^3/uL (0.4-5.4); Lymphocytes % (auto) 18.8 % (10.0-50.0); Mean Corpuscular Hemoglobin 33.9 pg (28.0-32.0); Mean Corpuscular Volume 99.7 fL (80.0-100.0); Monocytes # (auto) 0.8 10 ^3/uL (0-1.3); Monocytes % (auto) 11.4 % (0.0-12.0); Neutrophils # (auto) 4.8 10 ^3/uL (1.6-8.6); Neutrophils % (auto) 68.1 % (37.0-80.0); Nucleated Red Blood Cells % 0.1 %; Red Blood Cells 3.67 10^6/uL (4.0-5.20); Red Cell Distribution Width 14.9 % (11.8-14.3); White Blood Cell 7.1 10^3/uL (4.4-10.8)
[2024-05-12 06:24] LABS: Calcium 9.1 mg/dL (8.5-10.1); Chloride 99 mmol/L (98-107); Potassium 5.1 mmol/L (3.5-5.1); Sodium 137 mmol/L (136-145)
[2024-05-12 06:25] LABS: Anion Gap 10 (5-15); Carbon Dioxide 28 mmol/L (20-30)
[2024-05-12 06:30] LABS: BUN/Creatinine Ratio 2.9 (10.0-20.0); Glucose 90 mg/dL (74-106)
[2024-05-12 06:33] LABS: Blood Urea Nitrogen 25 mg/dL (9-23)
[2024-05-12] MEDS ORDERED: SODIUM CHL 0.9% 1000 ML BAG XX ONE (07:00)
[2024-05-12] MEDS: metroNIDAZOLE 500MG/100ML 100 ML IV SCH (07:18)
[2024-05-12] MEDS: PIPERACILLIN-TAZOB 2.25GM 50 ML IV SCH (11:35)
[2024-05-12] MEDS: FERROUS SULFATE 325mg EC TAB PO SCH (11:36)
[2024-05-12] MEDS: NIFEdipine ER 30 MG TAB PO SCH (11:37)
[2024-05-12] MEDS: SEVELAMER 800 MG TAB PO SCH (11:37)
[2024-05-12] MEDS: B-COMPLEX W/ C & FOLIC ACID(NEPHROVITE TAB) PO SCH (11:37)
[2024-05-12] MEDS: LOSARTAN POTASSIUM 50 MG TAB PO SCH (11:38)
[2024-05-12] MEDS: MINOXIDIL 2.5 MG TAB PO SCH (12:21)
[2024-05-12] MEDS: levoFLOXacin 500MG 100 ML IV ONE (14:14)
[2024-05-12] MEDS ORDERED: EPOETIN ALFA-EPBX 10,000 UNIT/1ML VIAL SC ONE (21:00)
[2024-05-12] MEDS: ACETAMINOPHEN 325 MG TAB PO PRN (23:31)
[2024-05-13 01:00] VITALS: BP 131/68; PULSE 98; RESP 18; TEMP 98.4; O2SAT 95
[2024-05-13 05:00] VITALS: BP 145/68; PULSE 103; RESP 19; TEMP 98; O2SAT 95
[2024-05-13 06:52] LABS: Basophils # (auto) 0 10 ^3/uL (0-0.2); Basophils % (auto) 0.3 % (0.0-2.0); Eosinophils # (auto) 0.1 10 ^3/uL (0-0.8); Eosinophils % (auto) 2.7 % (0.0-7.0); Hematocrit 34.9 % (36.0-46.0); Hemoglobin 11.5 g/dL (12.2-16.2); Lymphocytes # (auto) 0.9 10 ^3/uL (0.4-5.4); Lymphocytes % (auto) 17.6 % (10.0-50.0); Mean Corpuscular Hemoglobin 32.7 pg (28.0-32.0); Mean Corpuscular Hgb Conc. 32.9 g/dL (32.0-36.0); Mean Corpuscular Volume 99.4 fL (80.0-100.0); Monocytes # (auto) 0.7 10 ^3/uL (0-1.3); Monocytes % (auto) 14.5 % (0.0-12.0); Neutrophils # (auto) 3.3 10 ^3/uL (1.6-8.6); Neutrophils % (auto) 64.9 % (37.0-80.0); Nucleated Red Blood Cells % 0.1 %; Red Blood Cells 3.52 10^6/uL (4.0-5.20); Red Cell Distribution Width 14.2 % (11.8-14.3); White Blood Cell 5.1 10^3/uL (4.4-10.8)
[2024-05-13] MEDS ORDERED: METR-344 PO (06:56)
[2024-05-13] MEDS ORDERED: LEVO500T91 PO (06:56)
[2024-05-13 06:58] LABS: Chloride 99 mmol/L (98-107); Potassium 4.3 mmol/L (3.5-5.1); Sodium 135 mmol/L (136-145)
[2024-05-13 06:59] LABS: Anion Gap 11 (5-15); Calcium 9.3 mg/dL (8.7-10.4); Carbon Dioxide 25 mmol/L (20-30)
[2024-05-13 07:04] LABS: BUN/Creatinine Ratio 1.8 (10.0-20.0); Blood Urea Nitrogen 12 mg/dL (9-23); Glucose 90 mg/dL (74-106)
[2024-05-13 08:00] VITALS: PULSE 109; PULSE 115; RESP 20; O2SAT 96
[2024-05-13 08:20] VITALS: BP 157/78; PULSE 109; RESP 20; TEMP 97.8; O2SAT 96
[2024-05-13 09:28] VITALS: BP 157/78; PULSE 109; RESP 20; TEMP 97.8; O2SAT 96
[2024-05-13] MEDS: levoFLOXacin 250MG 50 ML IV SCH (09:35)
[2024-05-13 09:43] LABS: Hepatitis B Surface Antigen Negative (Negative)
[2024-05-13 10:05] LABS: Hepatitis C Antibody Negative (Negative)
[2024-05-13 10:06] LABS: Hepatitis A Ab IgM Negative
[2024-05-13 10:40] LABS: Hepatitis B Core IgM Negative
[2024-05-13 12:20] VITALS: BP 138/93; PULSE 101; RESP 20; TEMP 98.1; O2SAT 96
== END 2024-05-13 14:05 | disposition home health service (06) | DRG 385 ==
LOC: ER 03:10 → TELE 07:42 → TELE-WESTW 15:20
PROVIDERS: ADMIT Internal Medicine; ATTEND Internal Medicine
PROC: 5A1D70Z Performance of Urinary Filtration, Intermittent, Less than 6 Hours Per Day (ICD-10-PCS; principal; 2024-05-11)
PROC: 5A1D70Z Performance of Urinary Filtration, Intermittent, Less than 6 Hours Per Day (ICD-10-PCS; 2024-05-12)
DX: K50.00 Crohn's disease of small intestine without complications (principal); N18.6 End stage renal disease; R18.8 Other ascites; I12.0 Hypertensive chronic kidney disease with stage 5 chronic kidney disease or end stage renal disease; A04.72 Enterocolitis due to Clostridium difficile, not specified as recurrent; I16.0 Hypertensive urgency; E11.22 Type 2 diabetes mellitus with diabetic chronic kidney disease; E78.5 Hyperlipidemia, unspecified; E87.5 Hyperkalemia; Z79.891 Long term (current) use of opiate analgesic; Z79.899 Other long term (current) drug therapy; Z79.1 Long term (current) use of non-steroidal anti-inflammatories (NSAID); Z82.49 Family history of ischemic heart disease and other diseases of the circulatory system; Z79.84 Long term (current) use of oral hypoglycemic drugs; Z99.2 Dependence on renal dialysis; Z83.3 Family history of diabetes mellitus
CPT/HCPCS: 36415; 71045; 80048; 80053; 80074; 82962; 83690; 83735; 84484; 84702; 85025; 85048; 85610; 87040; 87045; 87177; 87427; 87493; 90935; 93005; 93306; G0378; J1642; J1815; J1956; J2405; J2543; J3490